=== PATIENT | female | born 1940 | race Hispanic/Latino ===

== ENCOUNTER 2017-07-12 17:18 | Inpatient (IN) | payer MEDICARE, OTHER ==
[2017-07-12 17:33] VITALS: BMI 34.0
--- NOTE | 2017-07-12 18:02 | ED PDOC ---
Arrival/HPI - General Chief Complaint: GI Problem Time Seen by Provider: 07/12/17 17:20 Historian: Patient - History of Present Illness Narrative History of Present Illness (Text): 07/12/17 18:01 This is a 76 yo female with past medical hx of HTN, DM, depression, presenting with chief complaint of nausea and vomiting. Pt describes the vomitus as " coffee ground" in nature. She also reports 1 day of black, tarry stools. Also reports feeling general feeling of weak all day. Denies ever having any episodes of hematemesis of GI bleeding before. Does take ASA and meloxicam regularly. Denies ever having endoscopy or colonoscopy before. Denies fevers, chills, chest pain, palpitations, falls, syncope. PMH: HTN, DM, depression PSH: Denies Allergies: NKDA FH: Denies Home meds: glipizide, metformin, lisinopril, zoloft Social hx: denies smoking, drinking, drug use. lives alone. 07/12/17 18:02 Time/Duration: Prior to Arrival Symptom Onset: Sudden Quality: Unable to Describe Activities at Onset: Rest Context: Home Past Medical History - Provider Review Nursing Documentation Reviewed: Yes - Travel History Have you recently traveled outside [place] w/in the past 3 mons?: No - Infectious Disease Hx of Infectious Diseases: None - Tetanus Immunization Tetanus Immunization: Unknown - Reproductive Menopause: Yes - Cardiac Hx Hypertension: Yes - Endocrine/Metabolic Hx Diabetes Mellitus Type 2: Yes - Psychiatric Hx Substance Use: No - Anesthesia Hx Anesthesia: No Family/Social History - Physician Review Nursing Documentation Reviewed: Yes Family/Social History: No Known Family HX Smoking Status: Never Smoked Hx Alcohol Use: No Hx Substance Use: No Hx Substance Use Treatment: No Allergies/Home Meds Allergies/Adverse Reactions: Allergies No Known Allergies Allergy (Verified 07/12/17 17:26) Home Medications: Home Meds Medication Instructions Recorded Confirmed Glipizide [Glipizide ER] 1 tab PO BID 07/12/17 07/12/17 Lisinopril [Zestril] 1 tab PO DAILY 07/12/17 07/12/17 Meloxicam [Mobic] 1 tab PO BID 07/12/17 07/12/17 Sertraline [Zoloft] 1 tab PO DAILY 07/12/17 07/12/17 metFORMIN [glucOPHAGE] 1 tab PO BID 07/12/17 07/12/17 Review of Systems - Review of Systems Constitutional: Fatigue, Other (weakness). absent: Fevers, Night Sweats Eyes: absent: Vision Changes, Photophobia ENT: absent: Hearing Changes, Tinnitus Respiratory: absent: SOB, Cough Cardiovascular: absent: Chest Pain, Palpitations Gastrointestinal: Abdominal Pain, Stool Changes, Diarrhea, Nausea, Vomiting, Hematemesis Genitourinary Female: absent: Dysuria, Frequency Musculoskeletal: absent: Arthralgias, Back Pain Skin: absent: Rash, Pruritis Neurological: absent: Headache, Dizziness Endocrine: absent: Diaphoresis, Polyuria Hemo/Lymphatic: absent: Adenopathy, Easy Bleeding Psychiatric: absent: Anxiety, Depression Physical Exam Vital Signs Temp Pulse Resp BP Pulse Ox 07/12/17 19:30 57 L 18 135/58 L 99 07/12/17 19:08 61 18 142/59 L 98 07/12/17 17:28 97.8 F 62 18 146/55 L 97 Appearance: Positive for: Unkept, Other (pale) Mental Status: Positive for: Alert and Oriented X 3 Finger Stick Blood Glucose: 231 - Systems Exam Head: Present: Atraumatic, Normocephalic Pupils: Present: PERRL Extroacular Muscles: Present: EOMI Mouth: Present: Dry Neck: Present: Normal Range of Motion Respiratory/Chest: No: Respiratory Distress, Accessory Muscle Use Cardiovascular: Present: Normal S1, S2 Abdomen: No: Tenderness, Distention, Peritoneal Signs Rectal: No: Occult Blood Upper Extremity: Present: Normal Inspection. No: Cyanosis, Edema Lower Extremity: Present: Normal Inspection. No: Edema Neurological: Present: CN II-XII Intact Skin: Present: Warm, Dry Psychiatric: Present: Alert, Oriented x 3, Normal Insight, Normal Concentration Medical Decision Making - Lab Interpretations Lab Results: 07/12/17 17:45 07/12/17 17:45 Lab Results 07/12/17 18:30: Urine Color Yellow, Urine Appearance Sl cloudy, Urine pH 6.0, Ur Specific Rosalie 1.020, Urine Protein Negative, Urine Glucose (UA) 100 H, Urine Ketones 15 H, Urine Blood Moderate H, Urine Nitrate Negative, Urine Bilirubin Negative, Urine Urobilinogen 0.2, Ur Leukocyte Esterase Small H, Urine RBC 5 - 10, Urine WBC 5 - 10, Ur Epithelial Cells 4 - 5, Urine Bacteria Many 07/12/17 18:00: PT 13.7 H, INR 1.25 H, APTT 28.1 07/12/17 17:45: Sodium 140, Potassium 5.1 H, Chloride 105, Carbon Dioxide 18 L, Anion Gap 21 H, BUN 97 H, Creatinine 1.4 H, Est GFR ( Amer) 44, Est GFR ( Non-Af Amer) 36, Random Glucose 248 H, Calcium 9.9, Total Bilirubin 0.3, AST 32 , ALT 27, Alkaline Phosphatase 64, Troponin I 0.05, Total Protein 7.1, Albumin 4.0, Globulin 3.1, Albumin/Globulin Ratio 1.3, Lipase 63 07/12/17 17:45: WBC 10.0, RBC 3.14 L, Hgb 10.0 L, Hct 30.0 L, MCV 95.5, MCH 31.8 , MCHC 33.3, RDW 13.2, Plt Count 267, MPV 9.9, Gran % 88.7 H, Lymph % (Auto) 9.2 L, Harnett % (Auto) 1.9, Eos % (Auto) 0.0 L, Baso % (Auto) 0.2, Gran # 8.90 H, Lymph # 0.9 L, Harnett # 0.2, Eos # 0.0, Baso # 0.02 - Medication Orders Current Medication Orders: Sodium Chloride (Sodium Chloride 0.9%) 1,000 mls @ 80 mls/hr IV .[id number] Last Admin: 07/12/17 18:05 Dose: 80 mls/hr eMAR Start Stop Document 07/12/17 18:05 GMD (Rec: 07/12/17 18:05 [id number]) Intravenous Solution Start Date 07/12/17 Start Time 18:05 Discontinued Medications Ondansetron HCl (Zofran Inj) 4 mg IVP STAT STA Stop: 07/12/17 18:03 Last Admin: 07/12/17 18:08 Dose: 4 mg IVP Administration Document 07/12/17 18:08 GMD (Rec: 07/12/17 18:08 [id number]) Charges for Administration # of IVP Administrations 1 Pantoprazole Sodium (Protonix Inj) 80 mg IVP STAT STA Stop: 07/12/17 18:00 Last Admin: 07/12/17 18:08 Dose: 80 mg IVP Administration Document 07/12/17 18:08 GMD (Rec: 07/12/17 18:08 GMD [id number]) Charges for Administration # of IVP Administrations 1 Disposition/Present on Arrival - Present on Arrival Any Indicators Present on Arrival: No History of DVT/PE: No History of Uncontrolled Diabetes: No Urinary Catheter: No History of Decub. Ulcer: No History Surgical Site Infection Following: None - Disposition Have Diagnosis and Disposition been Completed?: Yes Diagnosis: GI bleed Disposition: HOSPITALIZED Disposition Time: 19:00 Patient Plan: Admission Condition: STABLE
[2017-07-12 18:04] LABS: BASO # 0.02 K/mm3 (0.0-2.0); BASO % 0.2 % (0.0-3.0); GRAN # 8.9 (1.4-6.5); GRAN % 88.7 % (50.0-68.0); LYMPH # 0.9 (1.2-3.4); LYMPH % 9.2 % (22.0-35.0); MEAN CELL VOLUME 95.5 fl (80.0-105.0); MEAN CORPUSCULAR HEMOGLOBIN 31.8 pg (25.0-35.0); MEAN CORPUSCULAR HGB CONC 33.3 g/dl (31.0-37.0); MEAN PLATELET VOLUME 9.9 fl (7.0-11.0); MONO # 0.2 (0.1-0.6); MONO % 1.9 % (1.0-6.0); RED CELL DISTRIBUTION WIDTH 13.2 % (11.5-14.5)
[2017-07-12] MEDS: Sodium Chloride 0.9% 1,000 ML IV SCH (18:05)
[2017-07-12 18:39] LABS: TROPONIN I 0.05 ng/mL
[2017-07-12 18:41] LABS: URINE BILIRUBIN NEGATIVE (NEGATIVE); URINE BLOOD MODERATE (NEGATIVE); URINE GLUCOSE (UA) 100 mg/dL (NEGATIVE); URINE KETONE 15 mg/dL (NEGATIVE); URINE LEUKOCYTE ESTERASE SMALL Leu/uL (NEGATIVE); URINE PROTEIN NEGATIVE mg/dL (<30 mg/dL); URINE UROBILINOGEN 0.2 E.U./dL (<1 E.U./dL)
[2017-07-12 18:42] LABS: ALB/GLOB RATIO 1.3 (1.1-1.8); BILIRUBIN,TOTAL 0.3 mg/dL (0.2-1.3); CALCIUM 9.9 mg/dL (8.4-10.5); POTASSIUM 5.1 mmol/L (3.6-5.0); TOTAL PROTEIN 7.1 g/dL (5.8-8.3)
[2017-07-12 18:43] LABS: INR 1.25 (0.93-1.08); PARTIAL THROMBOPLASTIN TIME 28.1 Seconds (25.1-36.5)
[2017-07-12 18:44] LABS: URINE APPEARANCE SL CLOUDY (CLEAR); URINE COLOR YELLOW (YELLOW)
[2017-07-12 18:59] LABS: URINE BACTERIA MANY (NEG)
[2017-07-13] MEDS: Sodium Chloride 0.9% 1,000 ML IV SCH ×2 (05:31→22:59)
[2017-07-13 06:55] LABS: HEMATOCRIT 26.2 % (36.0-48.0); MEAN CELL VOLUME 94.6 fl (80.0-105.0); MEAN CORPUSCULAR HEMOGLOBIN 31.4 pg (25.0-35.0); MEAN CORPUSCULAR HGB CONC 33.2 g/dl (31.0-37.0); PLATELET COUNT 248 10^3/uL (120.0-450.0); RED CELL DISTRIBUTION WIDTH 13.4 % (11.5-14.5); RETIC% 1.45 % (0.5-1.5); WHITE BLOOD COUNT 9.3 10^3/ul (4.5-11.0)
[2017-07-13 07:02] LABS: IRON 91 ug/dL (45-180)
[2017-07-13 07:25] LABS: ALB/GLOB RATIO 1.2 (1.1-1.8); ALKALINE PHOSPHATASE 55 U/L (38-126); ALT/SGPT 22 U/L (7-56); AST/SGOT 19 U/L (14-36); BILIRUBIN,TOTAL 0.2 mg/dL (0.2-1.3); BLOOD UREA NITROGEN 91 mg/dL (7-21); CALCIUM 9.2 mg/dL (8.4-10.5); CARBON DIOXIDE 21 mmol/L (21-33); CHLORIDE 112 mmol/L (98-107); GFR AFRICAN-AMERICAN 44; GLUCOSE,RANDOM 124 mg/dL (70-110); SODIUM 143 mmol/L (132-148); TOTAL PROTEIN 6.4 g/dL (5.8-8.3)
[2017-07-13] MEDS: Insulin Reg-LOW-Coverage SC SCH ×4 (08:15→22:58)
[2017-07-13 12:11] LABS: FOLATE > 20.0 ng/mL
[2017-07-13 13:46] LABS: MEAN CELL VOLUME 94.4 fl (80.0-105.0); MEAN CORPUSCULAR HEMOGLOBIN 31.5 pg (25.0-35.0); MEAN CORPUSCULAR HGB CONC 33.3 g/dl (31.0-37.0); MEAN PLATELET VOLUME 9.5 fl (7.0-11.0); RED CELL DISTRIBUTION WIDTH 13.6 % (11.5-14.5); WHITE BLOOD COUNT 8.4 10^3/ul (4.5-11.0)
[2017-07-13 13:48] LABS: HEMATOCRIT 23.7 % (36.0-48.0)
--- NOTE | 2017-07-13 20:08 | CARD ---
APPROVED REPORT EKG Measurement Heart [id number] <Conclusion> Wide QRS rhythm Right bundle branch block Left anterior fascicular block Bifascicular block Voltage criteria for left ventricular hypertrophy Cannot rule out Septal infarct, age undetermined Abnormal ECG
--- NOTE | 2017-07-13 23:03 | CP.PCM.CON ---
<Ruben Ibrahim - Last Filed: 07/13/17 22:55> History of Present Illness - History of Present Illness History of Present Illness: Ruben Ibrahim D.O. PGY-2, Critical Care Consultation Note 76 year old female with a PMH of HTN, DM, and heart murmur who presented to [facility] on 07/12/17 with complaints of coffee ground emesis. Critical care consultation was requested for abnormal heart rhythm while on telemetry floor. Patient was seen and examined at bedside with attending physician. Patient was found resting comfortably and asleep but was easily arousable. Patient states that at this time she feels comfortable, has no complaints whatsoever, and is able to relate how she had the coffee grounds before presentation and that she is here now getting a blood transfusion. Patient denies any dizziness, lightheadedness, headache, shortness of breath, chest pain, nausea, vomiting, confusion, or any other complaints. Patient denies ever having been told in the past that she has an arrhythmia or ever seeing a petroleum products district supervisor. PMH: as above PSH: denies SH: denies smoking, alcohol use, or drug use, lives alone FH: denies Meds: reviewed Allergies: NKA Review of Systems - Constitutional Constitutional: absent: Anorexia, Chills, Malaise - EENT Eyes: absent: Blind Spots, Blurred Vision Ears: absent: Decreased Hearing, Ear Discharge Nose/Mouth/Throat: absent: Epistaxis, Nasal Congestion - Cardiovascular Cardiovascular: absent: Chest Pain, Diaphoresis - Respiratory Respiratory: absent: Cough, Dyspnea - Gastrointestinal Gastrointestinal: absent: Abdominal Pain, Nausea, Vomiting - Genitourinary Genitourinary: absent: Dysuria, Hematuria - Musculoskeletal Musculoskeletal: absent: Stiffness, Tingling - Integumentary Integumentary: absent: Pruritus, Rash - Neurological Neurological: absent: Confusion, Dizziness, Numbness, Focal Weakness Past Patient History - Infectious Disease Hx of Infectious Diseases: None - Tetanus Immunizations Tetanus Immunization: Unknown - Past Social History Smoking Status: Never Smoked - CARDIAC Hx Cardiac Disorders: Yes Hx Cardia Arrhythmia: Yes Hx Hypertension: Yes - ENDOCRINE/METABOLIC Hx Diabetes Mellitus Type 2: Yes - MUSCULOSKELETAL/RHEUMATOLOGICAL Hx Falls: Yes - PSYCHIATRIC Hx Depression: Yes - ANESTHESIA Hx Anesthesia: No Meds Allergies/Adverse Reactions: Allergies Allergy/AdvReac Type Severity Reaction Status Date / Time No Known Allergies Allergy Verified 07/12/17 17:26 - Medications Medications: Current Medications Sodium Chloride (Sodium Chloride 0.9%) 1,000 mls @ 80 mls/hr IV .[id number] [facility] Last Admin: 07/13/17 05:31 Dose: 80 mls/hr Insulin Human Regular (Humulin R Low) 0 units SC ACHS [facility] PRN Reason: Protocol Last Admin: 07/13/17 17:29 Dose: Not Given Lisinopril (Zestril) 10 mg PO DAILY [facility] Last Admin: 07/13/17 09:47 Dose: 10 mg Pantoprazole Sodium (Protonix Inj) 40 mg IVP Q12 [facility] Last Admin: 07/13/17 10:20 Dose: 40 mg Sertraline HCl (Zoloft) 50 mg PO DAILY [facility] Last Admin: 07/13/17 09:48 Dose: 50 mg Physical Exam - Constitutional Appears: Well, Non-toxic, No Acute Distress - Head Exam Head Exam: ATRAUMATIC, NORMOCEPHALIC - Eye Exam Eye Exam: EOMI, PERRL. absent: Scleral icterus - ENT Exam ENT Exam: Mucous Membranes Moist, Normal Oropharynx - Neck Exam Neck exam: Positive for: Normal Inspection. Negative for: Tenderness - Respiratory Exam Respiratory Exam: Clear to Auscultation Bilateral. absent: Rales, Rhonchi, Wheezes - Cardiovascular Exam Cardiovascular Exam: RRR, +S1, +S2, Systolic Murmur (3/6). absent: Rubs - GI/Abdominal Exam GI & Abdominal Exam: Normal Bowel Sounds, Soft. absent: Distended, Tenderness - Extremities Exam Extremities exam: Negative for: calf tenderness, pedal edema - Neurological Exam Neurological exam: Alert, Oriented x3 - Psychiatric Exam Psychiatric exam: Normal Affect, Normal Mood - Skin Skin Exam: Dry, Warm Results - Vital Signs Recent Vital Signs: Last Vital Signs Temp 98.7 F 07/13/17 20:54 Pulse 54 L 07/13/17 22:00 Resp 20 07/13/17 20:54 BP 101/38 L 07/13/17 20:54 Pulse Ox 100 07/13/17 06:00 - Labs Result Diagrams: 07/13/17 13:30 07/13/17 06:00 Labs: Laboratory Results - last 24 hr 07/13/17 07/13/17 07/13/17 06:00 06:00 06:00 WBC 9.3 RBC 2.77 L Hgb 8.7 L Hct 26.2 L MCV 94.6 MCH 31.4 MCHC 33.2 RDW 13.4 Plt Count 248 MPV 10.0 Retic Count 1.45 Sodium 143 Potassium 4.0 Chloride 112 H Carbon Dioxide 21 Anion Gap 15 BUN 91 H Creatinine 1.4 H Est GFR ( Amer) 44 Est GFR (Non-Af Amer) 36 POC Glucose (mg/dL) Random Glucose 124 H Calcium 9.2 Magnesium Iron 91 TIBC 250 L % Saturation 37 Total Bilirubin 0.2 AST 19 ALT 22 Alkaline Phosphatase 55 Total Protein 6.4 Albumin 3.4 Globulin 2.9 Albumin/Globulin Ratio 1.2 Vitamin B12 368 Folate > 20.0 07/13/17 07/13/17 07/13/17 07:00 07:09 10:58 WBC RBC Hgb Hct MCV MCH MCHC RDW Plt Count MPV Retic Count Sodium Potassium Chloride Carbon Dioxide Anion Gap BUN Creatinine Est GFR ( Amer) Est GFR (Non-Af Amer) POC Glucose (mg/dL) 143 H 233 H Random Glucose Calcium Magnesium 2.2 Iron TIBC % Saturation Total Bilirubin AST ALT Alkaline Phosphatase Total Protein Albumin Globulin Albumin/Globulin Ratio Vitamin B12 Folate 07/13/17 07/13/17 13:30 16:14 WBC 8.4 RBC 2.51 L Hgb 7.9 L Hct 23.7 L MCV 94.4 MCH 31.5 MCHC 33.3 RDW 13.6 Plt Count 242 MPV 9.5 Retic Count Sodium Potassium Chloride Carbon Dioxide Anion Gap BUN Creatinine Est GFR ( Amer) Est GFR (Non-Af Amer) POC Glucose (mg/dL) 135 H Random Glucose Calcium Magnesium Iron TIBC % Saturation Total Bilirubin AST ALT Alkaline Phosphatase Total Protein Albumin Globulin Albumin/Globulin Ratio Vitamin B12 Folate Assessment & Plan - Assessment and Plan (Free Text) Assessment: 76 year old female with a PMH of HTN, DM, and heart murmur being evaluated for abnormal heart rhythm while on telemetry floor Plan: Mobitz type 1, with alternating junctional escape rhythm EKG done at bedside shows above findings. Patient is completely asymptomatic at this time and hemodynamically stable with BP of 106/76 at bedside and regular HR of 50 with no significant pauses. Recommendation at this time would be careful monitoring of electrolytes for any abnormalities. Noted previous mild hyperkalemia which is resolved since this morning and checked magnesium which was normal at 2.2. Given her current medical state this may have been precipitated by her acute anemia (undergoing treatment with transfusion) or a possible urinary tract infection. Patient may benefit from petroleum products district supervisor evaluation and/or further EP studies as indicated. From a critical care standpoint patient does not require ICU level care at this time and is not in complete heart block and can continue her current medical management on the telemetry floor. Patient was seen and examined and case was discussed at length with attending physician. Thank you for the pleasure of participating in the care of this interesting patient. - Date & Time Date: 07/13/17 Time: 22:20 <Sinan Doe Q - Last Filed: 07/14/17 05:54> Meds - Medications Medications: Current Medications Sodium Chloride (Sodium Chloride 0.9%) 1,000 mls @ 80 mls/hr IV .[id number] [facility] Last Admin: 07/13/17 22:59 Dose: 80 mls/hr Insulin Human Regular (Humulin R Low) 0 units SC ACHS [facility] PRN Reason: Protocol Last Admin: 07/13/17 22:58 Dose: Not Given Lisinopril (Zestril) 10 mg PO DAILY [facility] Last Admin: 07/13/17 09:47 Dose: 10 mg Pantoprazole Sodium (Protonix Inj) 40 mg IVP Q12 [facility] Last Admin: 07/13/17 22:59 Dose: 40 mg Sertraline HCl (Zoloft) 50 mg PO DAILY [facility] Last Admin: 07/13/17 09:48 Dose: 50 mg Results - Vital Signs Recent Vital Signs: Last Vital Signs Temp 98.5 F 07/14/17 05:37 Pulse 47 L 07/14/17 05:37 Resp 20 07/14/17 05:37 BP 109/45 L 07/14/17 05:37 Pulse Ox 99 07/14/17 05:37 - Labs Result Diagrams: 07/13/17 13:30 07/13/17 06:00 Labs: Laboratory Results - last 24 hr 07/13/17 07/13/17 07/13/17 06:00 06:00 06:00 WBC 9.3 RBC 2.77 L Hgb 8.7 L Hct 26.2 L MCV 94.6 MCH 31.4 MCHC 33.2 RDW 13.4 Plt Count 248 MPV 10.0 Retic Count 1.45 Sodium 143 Potassium 4.0 Chloride 112 H Carbon Dioxide 21 Anion Gap 15 BUN 91 H Creatinine 1.4 H Est GFR ( Amer) 44 Est GFR (Non-Af Amer) 36 POC Glucose (mg/dL) Random Glucose 124 H Calcium 9.2 Magnesium Iron 91 TIBC 250 L % Saturation 37 Total Bilirubin 0.2 AST 19 ALT 22 Alkaline Phosphatase 55 Total Protein 6.4 Albumin 3.4 Globulin 2.9 Albumin/Globulin Ratio 1.2 Vitamin B12 368 Folate > 20.0 07/13/17 07/13/17 07/13/17 07:00 07:09 10:58 WBC RBC Hgb Hct MCV MCH MCHC RDW Plt Count MPV Retic Count Sodium Potassium Chloride Carbon Dioxide Anion Gap BUN Creatinine Est GFR ( Amer) Est GFR (Non-Af Amer) POC Glucose (mg/dL) 143 H 233 H Random Glucose Calcium Magnesium 2.2 Iron TIBC % Saturation Total Bilirubin AST ALT Alkaline Phosphatase Total Protein Albumin Globulin Albumin/Globulin Ratio Vitamin B12 Folate 07/13/17 07/13/17 13:30 16:14 WBC 8.4 RBC 2.51 L Hgb 7.9 L Hct 23.7 L MCV 94.4 MCH 31.5 MCHC 33.3 RDW 13.6 Plt Count 242 MPV 9.5 Retic Count Sodium Potassium Chloride Carbon Dioxide Anion Gap BUN Creatinine Est GFR ( Amer) Est GFR (Non-Af Amer) POC Glucose (mg/dL) 135 H Random Glucose Calcium Magnesium Iron TIBC % Saturation Total Bilirubin AST ALT Alkaline Phosphatase Total Protein Albumin Globulin Albumin/Globulin Ratio Vitamin B12 Folate Attending/Attestation - Attestation I have personally seen and examined this patient.: Yes I have fully participated in the care of the patient.: Yes I have reviewed all pertinent clinical information: Yes Notes (Text): 07/14/17 05:51 I agree with the above note and exam by the resident with the addition/ exception of the followin76 y/o female with a PMHx as listed above was on the telemetry floor showing arrhythmia's concerning to the telemetry monitoring scheme technician as well as the nursing staff. Patient evaluated and was found not to be in complete heart block requiring further aggressive management. Furthermore, patient is hemodynamically stable and clinically asymptomatic from a cardiac perspective at this time, resting comfortably in bed answering questions appropriately and visibly upset at being woken up. Recommend Cardiology evaluation Remain on telemetry floor
--- NOTE | 2017-07-14 03:06 | CON ---
DATE: 07/13/2017 REASON FOR CONSULTATION: Anemia, GI bleeding. HISTORY OF PRESENT ILLNESS: This is a 76-year-old patient with a past medical history of diabetes mellitus, hypertension, depression, history of arthritis, presented with complaints of nausea, vomiting. Also, she has coffee ground vomitus, and she reports one-day stool, it is loose black stool. The last bowel movement she has had is little bit more formed. Never had a similar episode before. No further episode since admission. On admission, hemoglobin was 10.0 and it dropped down to this morning to 8.7, and then again to 7.9. PAST MEDICAL HISTORY: Other past medical history as above. SURGICAL HISTORY: Denies any surgical history. No endoscopy or colonoscopy. ALLERGIES: NO KNOWN DRUG ALLERGIES. FAMILY HISTORY: Noncontributory. REVIEW OF SYSTEMS: Positive as above. Other systems reviewed. PHYSICAL EXAMINATION: GENERAL: The patient is lying on the bed, not in acute distress. VITAL SIGNS: Temperature is afebrile, blood pressure 108/50, pulse is 60, respirations 20. HEENT: Atraumatic, anicteric. NECK: Supple. CARDIOPULMONARY: Heart, S1 and S2 heard. LUNGS: Bilateral air entry present. ABDOMEN: Soft. There was no tenderness. EXTREMITIES: No edema, no cyanosis. NEUROLOGIC: Alert, oriented. Moves all the extremities. LABORATORY DATA: Hemoglobin has dropped from 10 to 8.7, then finally today is 7.9. Patient has resumed blood transfusion and MCV is 94.4. Chemistry shows creatinine is 1.4, BUN 94, INR is 1.25. ASSESSMENT: This 76-year-old patient admitted with melena, coffee ground vomitus, probably upper gastrointestinal bleeding. Patient has a history of taking nonsteroidal antiinflammatory drugs, mostly likely cause to be considered is NSAID-induced ulcerations and bleeding. Other comorbidities include diabetes mellitus, hypertension, and dyslipidemia. PLAN: 1. Follow up of the hemoglobin, hematocrit. 2. IV Protonix. 3. The patient has been transfused and we will need to follow up of the hemoglobin. We will consider upper GI endoscopy. Thank you very much for allowing us to participate in the care of the patient. Hansel Cardenas MD
[2017-07-14 06:01] LABS: HEMATOCRIT 29.6 % (36.0-48.0); MEAN CELL VOLUME 93.7 fl (80.0-105.0); MEAN CORPUSCULAR HGB CONC 33.1 g/dl (31.0-37.0); MEAN PLATELET VOLUME 9.8 fl (7.0-11.0); RED CELL DISTRIBUTION WIDTH 14.5 % (11.5-14.5); WHITE BLOOD COUNT 8.1 10^3/ul (4.5-11.0)
[2017-07-14 07:07] LABS: ALB/GLOB RATIO 1.2 (1.1-1.8); BILIRUBIN,TOTAL 0.4 mg/dL (0.2-1.3); CALCIUM 9.3 mg/dL (8.4-10.5); POTASSIUM 4.3 mmol/L (3.6-5.0); TOTAL PROTEIN 5.9 g/dL (5.8-8.3)
[2017-07-14] MEDS: Insulin Reg-LOW-Coverage SC SCH ×4 (08:18→22:08)
[2017-07-14] MEDS: Sodium Chloride 0.9% 1,000 ML IV SCH ×2 (08:19→12:04)
--- NOTE | 2017-07-14 14:01 | CARD ---
APPROVED REPORT EKG Measurement Heart [id number] <Conclusion> Sinus rhythm with 2nd degree AV block (Mobitz I) Right bundle branch block Left anterior fascicular block Bifascicular block Left ventricular hypertrophy with repolarization abnormality Cannot rule out Anteroseptal infarct, age undetermined Abnormal ECG
--- NOTE | 2017-07-14 18:00 | CARD ---
APPROVED REPORT EXAM: Two-dimensional and M-mode echocardiogram with Doppler and color Doppler. INDICATION 2D DIMENSIONS Left Atrium (2D)5.5 (1.6-4.0cm)IVSd1.4 (0.7-1.1cm) LVDd4.4 (3.9-5.9cm)LVOT Diameter1.4 (1.8-2.4cm) PWd1.8 (0.7-1.1cm)LVDs2.8 (2.5-4.0cm) FS (%) 36.2 %LVEF (%)66.2 (>50%) M-Mode DIMENSIONS Aortic Root3.30 (2.2-3.7cm)Aortic Cusp Exc.0.70 (1.5-2.0cm) Aortic Valve AoV Peak Jtemxwba902.0cm/sAoV WWO301.0cmAO Peak GR.123mmHg LVOT Peak Nuxgukna426.0cm/sLVOT VTI42.70cmAO Mean GR.72mmHg CATALINA (VMAX)0.47uh8RID (VTI)0.08ac8EV P 1/2 Ehbz817ut Mitral Valve MV E Gxwmvywv845.0cm/sMV E Peak Gr.13mmHgMV A Wuvlgdae075.0cm/s MV E Mean Gr.6mmHgMV GDG172ptB/A ratio1.1 MVA (PHT)1.39cm2 TDI E/Lateral E'0.0E/Medial E'0.0 Pulmonary Valve PV Peak Siirdoqb230.0cm/sPV Peak Grad.8mmHg Tricuspid Valve TR Peak Onbfkiro163nl/sRAP KOIDJMFK20niSdUV Peak Gr.49mmHg BQRM21gfWz LEFT VENTRICLE The left ventricle is normal size. There is mild to moderate concentric left ventricular hypertrophy. The left ventricular function is normal.EF-65% There is normal LV segmental wall motion. Transmitral Doppler flow pattern is Grade III-reversible restrictive diastolic dysfunction. No left ventricle thrombus noted on this study. There is no ventricular septal defect visualized. There is no left ventricular aneurysm. There is no mass noted in the left ventricle. RIGHT VENTRICLE The right ventricle is mildly dilated. There is normal right ventricular wall thickness. Systolic function of RV is mildly reduced. ATRIA The left atrium is moderately dilated. The right atrium is borderline dilated. The interatrial septum is intact with no evidence for an atrial septal defect. AORTIC VALVE The aortic valve is calcified and displays decreased opening. There is trace aortic regurgitation. There is severe valvular aortic stenosis. There is no aortic valvular vegetation. MITRAL VALVE The mitral valve is calcified and displays decreased opening. Mitral regurgitation is mild to moderate. There is moderate mitral valve stenosis. There is no evidence of mitral valve prolapse. TRICUSPID VALVE The tricuspid valve leaflets are thickened , but open well. There is mild to moderate tricuspid regurgitation.RVSP-59 mmof h g. There is no tricuspid valve stenosis. There is no tricuspid valve prolapse or vegetation. PULMONIC VALVE The pulmonary valve is normal in structure. There is trace pulmonic valvular regurgitation. There is no pulmonic valvular stenosis. GREAT VESSELS The aortic root is normal in size. The ascending aorta is normal in size. The pulmonary artery is normal. The IVC is normal in size and collapses >50% with inspiration. PERICARDIAL EFFUSION There is no pleural effusion. There is no pericardial effusion. <Conclusion> The left ventricle is normal size. There is mild to moderate concentric left ventricular hypertrophy. The left ventricular function is normal.EF-65% The right ventricle is mildly dilated. Systolic function of RV is mildly reduced. There is trace aortic regurgitation. There is severe valvular aortic stenosis. Mitral regurgitation is mild to moderate. There is moderate mitral valve stenosis. There is mild to moderate tricuspid regurgitation.RVSP-59 mmof h g.
--- NOTE | 2017-07-14 23:47 | PN ---
DATE: 07/14/2017 SUBJECTIVE: This patient was seen and evaluated earlier today. The patient previous overnight nursing notes and Dr. Yousif's note reviewed. The patient is comfortable. No further episodes of melena. PHYSICAL EXAMINATION VITAL SIGNS: Temperature is 98, pulse is 57 and blood pressure is 139/61. HEENT: Atraumatic. Anicteric. NECK: Supple. HEART: S1 and S2 heard. LUNGS: Bilateral air entry present. ABDOMEN: Soft. There is mild tenderness on deep palpation in the epigastric area, otherwise unremarkable. LABORATORY DATA: Hemoglobin is 9.8, hematocrit is 29.6, WBC is 8.1, and platelets are 205. BUN of 62 and creatinine of 1.3. IMPRESSION: This 76-year-old patient admitted with melena with drop in blood count, hemoglobin on initial admission was 10, it dropped to 7.9, status post 2 units transfusion, hemoglobin now is 9.8. The patient is on Protonix, history of nonsteroidal anti-inflammatory drug used as caused probable upper gastrointestinal bleeding to be considered. I did discuss with the patient's daughter at length, they are agreeable for the endoscopic evaluation. The patient was originally scheduled for endoscopy today. The patient had bradyarrhythmias and had been evaluated by the Cardiology. The patient has an echocardiogram done also. I would recommend. Her other comorbidities include diabetes mellitus, hypertension, depression, and history of arthritis. RECOMMENDATIONS: Continue Protonix 40 mg every 12 hourly and clear liquid diet. The patient is rescheduled for endoscopy in the a.m. Thank you very much for allowing us to participate in the care of the patient. Hansel Cardenas MD
[2017-07-15] MEDS: Sodium Chloride 0.9% 1,000 ML IV SCH ×3 (01:52→17:59)
--- NOTE | 2017-07-15 02:52 | CON ---
DATE: 07/13/2017 CONSULTING SERVICE: Cardiology. REASON FOR CONSULTATION: Abnormal lithium, rule out complete heart block or to assess need for pacemaker. BRIEF CLINICAL HISTORY: This is a 76-year-old female with mild obesity, hypertension, diabetes, heart murmur for many years, possible aortic stenosis, admitted with a coffee-ground vomitus, on telemetry. The patient appears Mobitz type I and complete heart block, so Cardiology consult was called. The patient denies any chest pain, shortness of breath, any palpitation. Denies any dizziness. Family is at the bedside. The patient has been told that she has heart murmur and abnormal lithium and was referred to Cardiology. The patient never went to see the home demonstration agent. PAST MEDICAL HISTORY: Significant for hypertension, diabetes, and heart murmur. SOCIAL HISTORY: Denies any history of alcohol abuse. CURRENT MEDICATIONS: The patient at home was taking metformin one tablet daily, Zoloft one tablet daily, Mobic one tablet daily, lisinopril one tablet daily, and glipizide extended release one tablet daily. ALLERGIES: NO KNOWN DRUG ALLERGIES. REVIEW OF SYSTEMS: As per HPI. PHYSICAL EXAMINATION: VITAL SIGNS: As follows: Temperature is afebrile, heart rate 73, and blood pressure 119/46. HEENT: PERRLA. Extraocular muscles are intact. NECK: Supple. No carotid bruit or thyromegaly. CHEST: Clear to auscultation. HEART: S1 and S2 regular. ABDOMEN: Soft. EXTREMITIES: Clubbing and cyanosis negative. LABORATORY DATA: Blood workup as follows: WBC 8.1, hemoglobin 9.8, hematocrit 29.6, and platelet count 205. Chemistry shows sodium 143, potassium 4.3, chloride 114, carbon dioxide 25, anion gap of 12, BUN 62, and creatinine 1.3. Hemoglobin 8.7 admitting and went down to 7.9, status post packed RBC transfusion. EKG shows QRS, right bundle bifascicular block. Repeat EKG shows Mobitz type I right bundle bifascicular block. IMPRESSION: Gastrointestinal bleed, hypertension, hyperlipidemia, loud murmur, and possible aortic stenosis.Arrhythmia R/o High grade AB Block and need for PPM, so far pt. is asymptomatic. RECOMMENDATIONS: Holter monitor, will assess the need for pacemaker. Echo to assess the LV function, lipid profile, and TSH. Discussed with the daughter, Nuvia, telephone number [phone] in length about the patient, the potential the patient may need the pacemaker depending on the hospital course. We will closely follow. We will put Holter today and lipid profile. Further recommendations will depend on the hospital course. Thank you for providing me the opportunity in taking care of Jody Townsend. Precious Yousif MD MTDPenelope
[2017-07-15 06:50] LABS: BASO # 0.03 K/mm3 (0.0-2.0); BASO % 0.4 % (0.0-3.0); EOS # 0.2 (0.0-0.7); EOS % 2.8 % (1.5-5.0); GRAN # 5.22 (1.4-6.5); GRAN % 70.9 % (50.0-68.0); HEMATOCRIT 27.5 % (36.0-48.0); LYMPH # 1.4 (1.2-3.4); LYMPH % 18.3 % (22.0-35.0); MEAN CELL VOLUME 93.9 fl (80.0-105.0); MEAN CORPUSCULAR HEMOGLOBIN 31.4 pg (25.0-35.0); MEAN CORPUSCULAR HGB CONC 33.5 g/dl (31.0-37.0); MEAN PLATELET VOLUME 9.7 fl (7.0-11.0); MONO # 0.6 (0.1-0.6); MONO % 7.6 % (1.0-6.0); RED CELL DISTRIBUTION WIDTH 14.4 % (11.5-14.5); WHITE BLOOD COUNT 7.4 10^3/ul (4.5-11.0)
[2017-07-15 07:06] LABS: ALB/GLOB RATIO 1.1 (1.1-1.8); BILIRUBIN,TOTAL 0.4 mg/dL (0.2-1.3); CALCIUM 8.8 mg/dL (8.4-10.5); MAGNESIUM 1.9 mg/dL (1.7-2.2); PHOSPHOROUS 2.8 mg/dL (2.5-4.5); TOTAL PROTEIN 5.9 g/dL (5.8-8.3)
[2017-07-15] MEDS: Insulin Reg-LOW-Coverage SC SCH ×4 (09:41→21:47)
--- NOTE | 2017-07-15 10:55 | CP.PCM.PN ---
<Anny Daly - Last Filed: 07/15/17 10:51> Subjective - Date & Time of Evaluation Date of Evaluation: 07/15/17 Time of Evaluation: 10:00 - Subjective Subjective: Seen and examined at the bedside this morning, chart was reviewed. Patient denies nausea, vomiting, or abdominal pain. No further episodes of hematemesis. The patient seen by cardiology who recommended pacemaker, patient is scheduled for tomorrow. Diet resumed. Patient reports having semi-loose stools nor reports of melena. Objective - Vital Signs/Intake and Output Vital Signs (last 24 hours): Temp Pulse Resp BP Pulse Ox 98.1 F 54 L 18 131/43 L 97 07/15/17 05:53 07/15/17 09:51 07/15/17 05:53 07/15/17 05:53 07/15/17 05:53 Intake and Output: 07/15/17 07/15/17 06:59 18:59 Intake Total 1380 Output Total 850 Balance 530 - Medications Medications: Current Medications Sodium Chloride (Sodium Chloride 0.9%) 1,000 mls @ 80 mls/hr IV .[id number] [facility] Last Admin: 07/15/17 09:42 Dose: Not Given Insulin Human Regular (Humulin R Low) 0 units SC ACHS [facility] PRN Reason: Protocol Last Admin: 07/15/17 09:41 Dose: Not Given Lisinopril (Zestril) 10 mg PO DAILY [facility] Last Admin: 07/15/17 09:51 Dose: Not Given Pantoprazole Sodium (Protonix Inj) 40 mg IVP Q12 [facility] Last Admin: 07/15/17 09:50 Dose: 40 mg Sertraline HCl (Zoloft) 50 mg PO DAILY [facility] Last Admin: 07/15/17 09:51 Dose: 50 mg - Labs Labs: 07/15/17 05:30 07/15/17 05:30 PT 13.7 SECONDS (9.4-12.5) H 07/12/17 18:00 INR 1.25 (0.93-1.08) H 07/12/17 18:00 APTT 28.1 Seconds (25.1-36.5) 07/12/17 18:00 - Constitutional Appears: No Acute Distress - Head Exam Head Exam: NORMOCEPHALIC - Eye Exam Eye Exam: Normal appearance, PERRL - ENT Exam ENT Exam: Mucous Membranes Moist - Neck Exam Neck Exam: Normal Inspection - Respiratory Exam Respiratory Exam: NORMAL BREATHING PATTERN. absent: Respiratory Distress - Cardiovascular Exam Cardiovascular Exam: +S1, +S2 - GI/Abdominal Exam GI & Abdominal Exam: Soft, Normal Bowel Sounds. absent: Guarding, Tenderness, Rebound - Extremities Exam Extremities Exam: absent: Calf Tenderness - Neurological Exam Neurological Exam: Alert, Awake, Oriented x3 - Skin Skin Exam: Dry, Warm Assessment and Plan - Assessment and Plan (Free Text) Assessment: Assessment: GI bleed/melena/hematemsis Anemia status post 2 units of packed RBC History of NSAID use H/O Arthritis Bradyarrhytmia DM, HTN PLAN: resume diet , heart healthy continue Protonix 40 mg Q 12H monitor H/H, overt GI bleeding planned for pacemaker tomorrow as per cardiology plan for EGD when cardiac stable, will follow closely discussed w/ both daughters at bedside. Seen and discussed w/ Dr. Muro. <Hansel Cardenas V - Last Filed: 07/15/17 23:32> Objective - Vital Signs/Intake and Output Vital Signs (last 24 hours): Temp Pulse Resp BP Pulse Ox 97.1 F L 48 L 19 127/41 L 97 07/15/17 18:00 07/15/17 22:00 07/15/17 18:00 07/15/17 18:00 07/15/17 05:53 - Medications Medications: Current Medications Sodium Chloride (Sodium Chloride 0.9%) 1,000 mls @ 80 mls/hr IV .[id number] [facility] Last Admin: 07/15/17 17:59 Dose: 80 mls/hr Insulin Human Regular (Humulin R Low) 0 units SC ACHS [facility] PRN Reason: Protocol Last Admin: 07/15/17 21:47 Dose: Not Given Lisinopril (Zestril) 10 mg PO DAILY [facility] Last Admin: 07/15/17 09:51 Dose: Not Given Pantoprazole Sodium (Protonix Inj) 40 mg IVP Q12 [facility] Last Admin: 07/15/17 21:49 Dose: 40 mg Sertraline HCl (Zoloft) 50 mg PO DAILY [facility] Last Admin: 07/15/17 09:51 Dose: 50 mg - Labs Labs: 07/15/17 05:30 07/15/17 05:30 PT 13.7 SECONDS (9.4-12.5) H 07/12/17 18:00 INR 1.25 (0.93-1.08) H 07/12/17 18:00 APTT 28.1 Seconds (25.1-36.5) 07/12/17 18:00 Attending/Attestation - Attestation I have personally seen and examined this patient.: Yes I have fully participated in the care of the patient.: Yes I have reviewed all pertinent clinical information, including history, physical exam and plan: Yes Notes (Text): This is an addendum to GI progress report dictated by Anny Daly APN.The patient was seen and examined earlier. Medical records, lab studies, imagings were reviewed. Last 24 hours events reviewed. Agreed with the above treatment plan as outlined in Anny Daly APN's notes the with the addition of the following Patient is tolerating the diet On PPI Hemoglobin stable Discussed with the Dr. Sexton Plan for permanent pacemaker placement tomorrow. Recommendation 1. Follow up on the hemoglobin and hematocrit to continue PPI She is scheduled for EGD after permanent pacemaker placement 07/15/17 23:27 Ir
--- NOTE | 2017-07-15 13:25 | PN ---
DATE:07/15/2017 REASON FOR CONSULTATION: Abnormal rhythm, rule out complete heart block, assess a need of pacemaker. SUBJECTIVE: The patient is lying flat in the bed, came out from endoscopy this was canceled because of heart block. Denies any chest pain. Denies shortness of breath. Denies any palpitation. Denies any dizziness. OBJECTIVE: GENERAL: Not in apparent distress. VITAL SIGNS: As follows: The patient is n.p.o., heart rate 70, and blood pressure 119/44. HEENT: PERRLA intact. NECK: Supple. No carotid bruits or thyromegaly. CHEST: Clear to auscultation. HEART: S1 and S2. Regular. ABDOMEN: Soft. EXTREMITIES: Clubbing and cyanosis negative. LABORATORY DATA: Blood workup: WBC 8.1, hemoglobin 9.8, hematocrit 27.5, and platelet count 203. Chemistry shows sodium 140, potassium 4.0, chloride 112, carbon dioxide 23, anion gap 10, BUN 34, and creatinine 1.1. The patient had an echocardiography done yesterday that shows ejection fraction of 65%, right ventricle mildly dilated, her systolic pressure of right ventricle is mildly reduced, trace aortic regurgitation, severe valvular aortic stenosis, [id number]-[id number] mitral regurgitation, moderate mitral valve stenosis, and okhw-pv-[id number] tricuspid regurgitation. Telemetry strip shows isorhythmic AV dissociation, complete heart block, but the patient is hemodynamically stable. GI bleed, hematemesis, dropped H and H, admitting hemoglobin then dropped to 8.7, then 7.9, two units of packed RBC, now is 9.2. The patient was scheduled for endoscopy today, but because of the heart block, Anesthesia is concerned and it is canceled. RECOMMENDATIONS: Resume diet. Yesterday discussed with daughter Adri at length and the sister about the possibility of pacemaker. Today, telemetry reviewed. The patient is in complete heart block with asymptomatic and maintaining the blood pressure the patient needs a pacemaker. Left the message to Adri on telephone [phone], though yesterday, I discussed in length the possibility of a pacemaker depending on the hospital course. Now since the patient is here, telemetry strip shows the patient goes into Mobitz type II block and then goes into heart block, though remained hemodynamically stable, lowest heart rate is around 50 to 49 to 50, but is isorhythmic AV dissociation. Recommendation was to schedule a pacemaker tomorrow and resume the food. Also the patient had underlying severe aortic stenosis, moderate mitral regurgitation. We also discussed the need of valvular procedure, TAVR versus open heart, but needs a catheterization for that, but first in terms of priority, the patient needs pacemaker that will be scheduled tomorrow and then the patient endoscopy plus the patient's dropping H and H. Once the endoscopy is done and GI issue is resolved, then we will look into the issue to resolve the valvular heart disease for TAVR versus open heart surgery. We will discuss with you. For now, we will hold the endoscopy, resume diet. We will keep n.p.o. after the breakfast for pacemaker tomorrow. In the interim, continue lisinopril and avoid rate limiting calcium channel sonia or beta-sonia. We will follow with you. Thank you Dr. Bell for providing me the opportunity in taking care of the patient, Cary Vera. Precious Yousif MD
--- NOTE | 2017-07-15 17:36 | CARD ---
APPROVED REPORT EKG Measurement Heart [id number] <Conclusion> Atrial fibrillation with slow ventricular response with a competing junctional pacemaker Right bundle branch block Left anterior fascicular block Bifascicular block Voltage criteria for left ventricular hypertrophy Cannot rule out Anteroseptal infarct, age undetermined Abnormal ECG
--- NOTE | 2017-07-16 00:57 | PN ---
DATE: 07/15/2017 SUBJECTIVE: The patient was seen this Friday evening in room 270, bed 2. She is awake, alert, clear, resting comfortably in bed. Happy to see me on this her third day of hospital stay. She admitted with hematemesis. She was found to be bradycardic. She was transfused 2 units of packed red cells and is scheduled for pacemaker placement tomorrow. She had an echocardiogram because of her longstanding aortic stenosis murmur, which showed significant stenosis that could be addressed in the future after pacemaker and GI workup. Telemetry strips were reviewed, showing a variety of blocks including third-degree block and bradyarrhythmia, is down into the 30s. Labs, vital signs, and senior solutions workflow consultant notes were reviewed and appreciated. PHYSICAL EXAMINATION: GENERAL: Essentially unremarkable. She is awake, alert, in good spirits. LUNGS: Show good aeration, right and left. HEART: Not tachycardic, not bradycardic at this time. EXTREMITIES: Show no edema. IMPRESSION: 1. Hematemesis. 2. Bradyarrhythmia. 3. Aortic stenosis. 4. History of hypertension. 5. History of diabetes. PLAN: Pacemaker for tomorrow, then endoscopy for hematemesis. Continue PPIs. Flip Bell MD MTDD
[2017-07-16] MEDS: Sodium Chloride 0.9% 1,000 ML IV SCH ×2 (05:03→22:52)
[2017-07-16 06:31] LABS: BASO # 0.03 K/mm3 (0.0-2.0); BASO % 0.4 % (0.0-3.0); EOS # 0.3 (0.0-0.7); EOS % 3.2 % (1.5-5.0); GRAN # 5.34 (1.4-6.5); GRAN % 68.6 % (50.0-68.0); HEMATOCRIT 26.8 % (36.0-48.0); LYMPH # 1.7 (1.2-3.4); LYMPH % 21.3 % (22.0-35.0); MEAN CELL VOLUME 94.4 fl (80.0-105.0); MEAN CORPUSCULAR HEMOGLOBIN 31.3 pg (25.0-35.0); MEAN CORPUSCULAR HGB CONC 33.2 g/dl (31.0-37.0); MEAN PLATELET VOLUME 9.7 fl (7.0-11.0); MONO # 0.5 (0.1-0.6); MONO % 6.5 % (1.0-6.0); PLATELET COUNT 214 10^3/uL (120.0-450.0); RED CELL DISTRIBUTION WIDTH 13.9 % (11.5-14.5); RETIC% 2.35 % (0.5-1.5); WHITE BLOOD COUNT 7.8 10^3/ul (4.5-11.0)
[2017-07-16 06:58] LABS: BLOOD UREA NITROGEN 33 mg/dL (7-21); CALCIUM 8.9 mg/dL (8.4-10.5); CARBON DIOXIDE 25 mmol/L (21-33); CHLORIDE 110 mmol/L (98-107); GFR AFRICAN-AMERICAN > 60; GLUCOSE,RANDOM 140 mg/dL (70-110); POTASSIUM 4.2 mmol/L (3.6-5.0); SODIUM 139 mmol/L (132-148)
[2017-07-16] MEDS: Insulin Reg-LOW-Coverage SC SCH ×4 (08:30→22:05)
[2017-07-16] MEDS ORDERED: Pantoprazole 40mg/100ml IVPB 40 MG/100 ML BAG IVPB SCH (08:30)
[2017-07-16] MEDS: Pantoprazole 40mg/100ml IVPB 40 MG/100 ML BAG IVPB SCH ×2 (08:37→22:05)
[2017-07-16 08:54] LABS: HEMATOCRIT 22.3 % (36.0-48.0)
--- NOTE | 2017-07-16 10:01 | CP.PCM.PN ---
Subjective - Date & Time of Evaluation Date of Evaluation: 07/16/17 Time of Evaluation: 08:50 - Subjective Subjective: CRITICAL CARE PROGRESS NOTE Pt is 76 year old female with a PMH of HTN, DM, and heart murmur who presented to [facility] on 07/12/17 with complaints of coffee ground emesis. Patient was also noted to be in 2nd degree block, with plans for PPM this morning. Patient was doing well on telemetry, this morning had large amount coffee ground emesis, with drop in HH to 7.4. Currently afebrile, HD stable, comfortable, in NAD. Reports nausea with vomiting. No other constitutional symptoms. Objective - Vital Signs/Intake and Output Vital Signs (last 24 hours): Temp Pulse Resp BP Pulse Ox 98.7 F 49 L 20 134/46 L 98 07/16/17 06:00 07/16/17 06:00 07/16/17 06:00 07/16/17 06:00 07/16/17 06:00 Intake and Output: 07/16/17 07/16/17 06:59 18:59 Intake Total 1320 Output Total 0 Balance 1320 - Medications Medications: Current Medications Sodium Chloride (Sodium Chloride 0.9%) 1,000 mls @ 80 mls/hr IV .[id number] [facility] Last Admin: 07/16/17 05:03 Dose: Not Given Pantoprazole Sodium (Protonix 40mg Ivpb) 40 mg in 100 mls @ 8 mls/hr IVPB .[id number] [facility] Last Admin: 07/16/17 08:37 Dose: 8 mls/hr Insulin Human Regular (Humulin R Low) 0 units SC ACHS [facility] PRN Reason: Protocol Last Admin: 07/16/17 08:30 Dose: Not Given Lisinopril (Zestril) 10 mg PO DAILY [facility] Last Admin: 07/15/17 09:51 Dose: Not Given Ondansetron HCl (Zofran Inj) 4 mg IVP Q4H PRN PRN Reason: Nausea/Vomiting Last Admin: 07/16/17 07:58 Dose: 4 mg Sertraline HCl (Zoloft) 50 mg PO DAILY [facility] Last Admin: 07/15/17 09:51 Dose: 50 mg - Labs Labs: 07/16/17 08:13 07/16/17 05:40 PT 13.7 SECONDS (9.4-12.5) H 07/12/17 18:00 INR 1.25 (0.93-1.08) H 07/12/17 18:00 APTT 28.1 Seconds (25.1-36.5) 07/12/17 18:00 - Constitutional Appears: Well, Non-toxic, No Acute Distress - Eye Exam Eye Exam: Normal appearance - ENT Exam ENT Exam: Mucous Membranes Moist - Respiratory Exam Respiratory Exam: Clear to Ausculation Bilateral, NORMAL BREATHING PATTERN - Cardiovascular Exam Cardiovascular Exam: REGULAR RHYTHM, +S1, +S2 - GI/Abdominal Exam GI & Abdominal Exam: Soft, Normal Bowel Sounds - Back Exam Back Exam: NORMAL INSPECTION - Neurological Exam Neurological Exam: Alert, Awake, Oriented x3 Neuro motor strength exam: Left Upper Extremity: 5, Right Upper Extremity: 5, Left Lower Extremity: 5, Right Lower Extremity: 5 - Skin Skin Exam: Normal Color Assessment and Plan - Assessment and Plan (Free Text) Assessment: 76yo female a/w GIB and and 2nd degree heart block. - currently afebrile, HD stable, comfortable, AAoX3, NAD - EKG with Mobitz type I, NSST changes - HH dropped to 7.5 from 8.9 - patient to receive 2u pRBC, then have EGD done as per GI and cardiology - transfuse 2u PRBC, platelets stable - check INR - IVF hydration - maintain 2 large bore PIVs - PPI gtt - NPO - follow up cardiology, GI - transfer to MICU critical care time 40 minutes
--- NOTE | 2017-07-16 10:50 | PN ---
DATE: 07/16/2017 The patient is a 76-year-old female. REASON FOR CONSULTATION AND FOLLOWUP: Abnormal rhythm, rule out complete heart block and assess the need for pacemaker, active bleeding GI. This morning decent amount of hematemesis noted. OBJECTIVE: GENERAL: The patient is lying flat in bed, a sort of rapid response. The patient is actively GI bleeding, though hemodynamically stable. Not in apparent distress. VITAL SIGNS: Temperature afebrile, heart rate 71, blood pressure 121/80. HEENT: PERRLA intact. NECK: Supple. No carotid bruits or thyromegaly. CHEST: Clear to auscultation. HEART: S1 and S2 regular. ABDOMEN: Soft. EXTREMITIES: Clubbing and cyanosis negative. LABORATORY DATA: Blood workup as follows: WBC at 05:00 a.m. 7.8, hemoglobin 8.9, hematocrit 26.8, platelet count 214. Chemistry shows sodium 113, potassium 4.2, chloride 110, carbon dioxide 25, anion gap of 8, BUN 33, and creatinine 1. IMPRESSION: Active gastrointestinal bleeding, decent amount of gastrointestinal bleed, fresh blood, hematemesis, complete heart block, but holding the blood pressure hemodynamically not compromised. Aortic stenosis, severe [id number] mitral regurgitation, moderate valvular aortic stenosis. It looks like the patient needs urgent endoscopy. It is benefit ratio in favor of though the patient will be high risk for procedure, but risk-benefit ratio is in favor to have endoscopy because the patient can exsanguinate and from the active bleeding, and since the patient is not hemodynamically compromised, does not need emergent temporary venous pacemaker. Discussed with Dr. Cardenas of GI. The patient is hemodynamically stable from Cardiology point of view to go to the operating room for endoscopy and cauterization. After this, we will consider the pacemaker. The patient has already been scheduled for pacemaker for 03:00 p.m. If the patient remains stable, we will put the pacemaker tomorrow at 03:00 p.m. We will follow with you closely. Thank you for providing us the opportunity in taking care of the patient, Jody Townsend. Precious Yousif MD
[2017-07-16] MEDS ORDERED: Etomidate 20 mg/10ml Inj IV ONE (15:36)
[2017-07-16] MEDS ORDERED: Phenylephrine 10 mg/ml Inj ONE (15:37)
[2017-07-16] MEDS ORDERED: ePHEDrine 50 mg/ml Inj ONE (15:37)
[2017-07-16] MEDS ORDERED: Lidocaine 1% Inj (20ml) ONE (15:50)
[2017-07-16] MEDS ORDERED: Succinylcholine 200 mg/10 ml Inj IV ONE (15:51)
[2017-07-16] MEDS ORDERED: EPINEPHrine 1 mg/ml (1:1000) Inj ONE (16:35)
[2017-07-16 20:30] LABS: HEMATOCRIT 27.1 % (36.0-48.0); MEAN CELL VOLUME 92.5 fl (80.0-105.0); MEAN CORPUSCULAR HEMOGLOBIN 31.4 pg (25.0-35.0); MEAN CORPUSCULAR HGB CONC 33.9 g/dl (31.0-37.0); MEAN PLATELET VOLUME 9.8 fl (7.0-11.0); RED CELL DISTRIBUTION WIDTH 14.4 % (11.5-14.5); WHITE BLOOD COUNT 16.9 10^3/ul (4.5-11.0)
--- NOTE | 2017-07-16 23:42 | CARD ---
APPROVED REPORT EKG Measurement Heart [id number] <Conclusion> Atrial fibrillation with a competing junctional pacemaker Right bundle branch block Left anterior fascicular block Bifascicular block Voltage criteria for left ventricular hypertrophy Cannot rule out Septal infarct, age undetermined Abnormal ECG
[2017-07-17 01:12] LABS: HEMATOCRIT 26.1 % (36.0-48.0); MEAN CELL VOLUME 92.9 fl (80.0-105.0); MEAN CORPUSCULAR HEMOGLOBIN 31.3 pg (25.0-35.0); MEAN CORPUSCULAR HGB CONC 33.7 g/dl (31.0-37.0); MEAN PLATELET VOLUME 9.9 fl (7.0-11.0); WHITE BLOOD COUNT 14.6 10^3/ul (4.5-11.0)
[2017-07-17 05:37] LABS: MEAN CELL VOLUME 92.3 fl (80.0-105.0); MEAN CORPUSCULAR HEMOGLOBIN 31.3 pg (25.0-35.0); MEAN CORPUSCULAR HGB CONC 33.9 g/dl (31.0-37.0); RED CELL DISTRIBUTION WIDTH 14.9 % (11.5-14.5); WHITE BLOOD COUNT 11.9 10^3/ul (4.5-11.0)
[2017-07-17 05:52] LABS: HEMATOCRIT 23.9 % (36.0-48.0)
[2017-07-17] MEDS: Sodium Chloride 0.9% 1,000 ML IV SCH ×2 (05:53→17:06)
[2017-07-17] MEDS: Insulin Reg-LOW-Coverage SC SCH ×4 (08:00→22:03)
[2017-07-17 08:24] LABS: ALB/GLOB RATIO 1.2 (1.1-1.8); BILIRUBIN,TOTAL 0.3 mg/dL (0.2-1.3); CALCIUM 8.2 mg/dL (8.4-10.5); POTASSIUM 4.2 mmol/L (3.6-5.0); TOTAL PROTEIN 5.2 g/dL (5.8-8.3)
[2017-07-17] MEDS: Pantoprazole 40mg/100ml IVPB 40 MG/100 ML BAG IVPB SCH ×2 (08:37→21:04)
[2017-07-17 10:17] LABS: BASO # 0.04 K/mm3 (0.0-2.0); BASO % 0.4 % (0.0-3.0); EOS # 0.1 (0.0-0.7); EOS % 0.6 % (1.5-5.0); GRAN # 7.31 (1.4-6.5); GRAN % 77.4 % (50.0-68.0); LYMPH # 1.5 (1.2-3.4); LYMPH % 15.6 % (22.0-35.0); MEAN CORPUSCULAR HEMOGLOBIN 31.3 pg (25.0-35.0); MEAN CORPUSCULAR HGB CONC 33.6 g/dl (31.0-37.0); MEAN PLATELET VOLUME 9.8 fl (7.0-11.0); MONO # 0.6 (0.1-0.6); RED CELL DISTRIBUTION WIDTH 15.1 % (11.5-14.5); WHITE BLOOD COUNT 9.5 10^3/ul (4.5-11.0)
[2017-07-17 10:39] LABS: HEMATOCRIT 22.6 % (36.0-48.0)
[2017-07-17] MEDS ORDERED: Lidocaine 2% Inj (20ml) ONE ×2 (13:20→14:13)
[2017-07-17] MEDS ORDERED: Midazolam 2 MG/2 ML VIAL ONE (14:19)
--- NOTE | 2017-07-17 14:24 | CP.PCM.PN ---
<Anny Daly - Last Filed: 07/17/17 14:21> Subjective - Date & Time of Evaluation Date of Evaluation: 07/17/17 Time of Evaluation: 09:30 - Subjective Subjective: Seen and examined and chart reviewed earlier this am, patient is status post endoscopy, found to have created duodenal ulcer with blood oozing and visible vessel in the duodenal bulb. Total of 4 units of packed RBCs given. Patient denies nausea, vomiting or hematemesis. No bowel movements or reported bleeding per rectum. Spoke to daughter at bedside Objective - Vital Signs/Intake and Output Vital Signs (last 24 hours): Temp Pulse Resp BP Pulse Ox 98 F 60 13 99/58 L 100 07/17/17 12:27 07/17/17 13:20 07/17/17 13:20 07/17/17 13:15 07/17/17 10:20 Intake and Output: 07/17/17 07/17/17 06:59 18:59 Intake Total 1666 0 Output Total 650 Balance 1016 0 - Medications Medications: Current Medications Sodium Chloride (Sodium Chloride 0.9%) 1,000 mls @ 80 mls/hr IV .[id number] [facility] Last Admin: 07/17/17 05:53 Dose: 80 mls/hr Pantoprazole Sodium (Protonix 40mg Ivpb) 40 mg in 100 mls @ 8 mls/hr IVPB .[id number] [facility] Last Admin: 07/17/17 08:37 Dose: 8 mls/hr Insulin Human Regular (Humulin R Low) 0 units SC ACHS [facility] PRN Reason: Protocol Last Admin: 07/17/17 12:18 Dose: Not Given Lisinopril (Zestril) 10 mg PO DAILY [facility] Last Admin: 07/17/17 09:08 Dose: 10 mg Ondansetron HCl (Zofran Inj) 4 mg IVP Q4H PRN PRN Reason: Nausea/Vomiting Last Admin: 07/16/17 17:12 Dose: 4 mg Sertraline HCl (Zoloft) 50 mg PO DAILY [facility] Last Admin: 07/17/17 09:09 Dose: 50 mg - Labs Labs: 07/17/17 10:10 07/17/17 07:00 PT 13.7 SECONDS (9.4-12.5) H 07/12/17 18:00 INR 1.25 (0.93-1.08) H 07/12/17 18:00 APTT 28.1 Seconds (25.1-36.5) 07/12/17 18:00 - Constitutional Appears: No Acute Distress - Head Exam Head Exam: NORMOCEPHALIC - Eye Exam Eye Exam: Normal appearance. absent: Scleral icterus - ENT Exam ENT Exam: Mucous Membranes Moist - Neck Exam Neck Exam: Normal Inspection - Respiratory Exam Respiratory Exam: NORMAL BREATHING PATTERN. absent: Respiratory Distress - Cardiovascular Exam Cardiovascular Exam: +S1, +S2 - GI/Abdominal Exam GI & Abdominal Exam: Soft, Normal Bowel Sounds. absent: Guarding, Tenderness, Rebound - Extremities Exam Extremities Exam: absent: Calf Tenderness, Pedal Edema - Neurological Exam Neurological Exam: Alert, Awake, Oriented x3 ([place]) Assessment and Plan - Assessment and Plan (Free Text) Assessment: Assessment: GI bleed/melena/hematemsis, s/p egd , found duodenal ulcer w/ blood oozing and vissible vessel, s/p hemoclip x 3 Anemia secondary to GI bleed, status post total 4 units of packed RBC History of NSAID use H/O Arthritis Bradyarrhytmia DM, HTN PLAN: NPO , continue IVF for hydration continue Protonix drip CBC Q 4 hours monitor H/H, overt GI bleeding, transfuse as neccesary. planned for pacemamaker today recommend surgical/ IR evaluation if bleeding reoccurs or hemaglobin remains to decrease discussed with ICU team Seen and discussed w/ Dr. Muro. <Ronald,Kovil V - Last Filed: 07/17/17 22:55> Objective - Vital Signs/Intake and Output Vital Signs (last 24 hours): Temp Pulse Resp BP Pulse Ox 98.4 F 60 20 117/45 L 98 07/17/17 20:30 07/17/17 20:34 07/17/17 20:30 07/17/17 20:30 07/17/17 20:30 Intake and Output: 07/17/17 07/18/17 18:59 06:59 Intake Total 1381 335 Balance 1381 335 - Medications Medications: Current Medications Cephalexin Monohydrate (Keflex) 250 mg PO TID [facility] PRN Reason: Protocol Stop: 07/21/17 23:59 Last Admin: 07/17/17 18:36 Dose: 250 mg Sodium Chloride (Sodium Chloride 0.9%) 1,000 mls @ 80 mls/hr IV .[id number] [facility] Last Admin: 07/17/17 17:06 Dose: 80 mls/hr Pantoprazole Sodium (Protonix 40mg Ivpb) 40 mg in 100 mls @ 8 mls/hr IVPB .[id number] [facility] Last Admin: 07/17/17 21:04 Dose: 8 mls/hr Insulin Human Regular (Humulin R Low) 0 units SC ACHS [facility] PRN Reason: Protocol Last Admin: 07/17/17 22:03 Dose: Not Given Lisinopril (Zestril) 10 mg PO DAILY [facility] Last Admin: 07/17/17 09:08 Dose: 10 mg Ondansetron HCl (Zofran Inj) 4 mg IVP Q4H PRN PRN Reason: Nausea/Vomiting Last Admin: 07/16/17 17:12 Dose: 4 mg Sertraline HCl (Zoloft) 50 mg PO DAILY [facility] Last Admin: 07/17/17 09:09 Dose: 50 mg - Labs Labs: 07/17/17 21:44 07/17/17 07:00 PT 13.7 SECONDS (9.4-12.5) H 07/12/17 18:00 INR 1.25 (0.93-1.08) H 07/12/17 18:00 APTT 28.1 Seconds (25.1-36.5) 07/12/17 18:00 Attending/Attestation - Attestation I have personally seen and examined this patient.: Yes I have fully participated in the care of the patient.: Yes I have reviewed all pertinent clinical information, including history, physical exam and plan: Yes Notes (Text): patient was seen earlier. Abdomen soft and no tenderness The drop in hemoglobin and blood being transfused Continue Protonix drip Discussed with icu resident 07/17/17 22:51
--- NOTE | 2017-07-17 15:50 | PN ---
DATE: 07/17/2017 REASON FOR CONSULTATION AND FOLLOWUP: Abnormal rhythm, high grade AV block, status post massive GI bleed, status post endoscopy, and cauterization. SUBJECTIVE: The patient denies any chest pain, shortness of breath, or any palpitation. Family is at the bedside. PHYSICAL EXAMINATION: As follows: GENERAL: Not in apparent distress. VITAL SIGNS: Heart rate 50, blood pressure 108/50. HEENT: PERRLA, intact. NECK: Supple. No carotid bruits or thyromegaly. CHEST: Clear to auscultation. HEART: S1 and S2 regular. ABDOMEN: Soft. EXTREMITIES: Clubbing and cyanosis negative. LABORATORY DATA: Blood workup as follows: WBC 9.5, hemoglobin 7.6, hemoglobin 22.6, and platelet count 182. Chemistry shows sodium 140, potassium 4, chloride 114, carbon dioxide 22, anion gap 12, BUN 53, and creatinine 1.1. IMPRESSION: Massive gastrointestinal bleed, status post endoscopy, ulcer bleeding, status post cauterization. Complete heart block, high grade, but hemodynamically stable, severe aortic stenosis, moderate mitral stenosis, right ventricle dilated, trace aortic regurgitation, severe valvular aortic stenosis, [id number] mitral regurgitation, [id number] tricuspid regurgitation, moderate valvular aortic stenosis, preserved left ventricular ejection fraction of 55%, and anemia. RECOMMENDATIONS: We will give 2 units of packed RBC's. Discussed with referring, taking care pacemaker today, discussed with the family. Family agreed, we will proceed forward with cardiac catheterization. Precious Yousif MD
--- NOTE | 2017-07-17 16:21 | RAD ---
HISTORY: S/P Post Pacemaker, R/o Pneumothorax COMPARISON: No prior. FINDINGS: LUNGS: No active pulmonary disease. PLEURA: No significant pleural effusion identified, no pneumothorax apparent. CARDIOVASCULAR: Normal. OSSEOUS STRUCTURES: No significant abnormalities. VISUALIZED UPPER ABDOMEN: Normal. OTHER FINDINGS: Single lead pacemaker IMPRESSION: No active disease.
--- NOTE | 2017-07-17 16:43 | CARD ---
APPROVED REPORT HISTORY The Patient is a 76 year-old female with a history of , MR admitted with Severe Gi Bleed and Hear Block PROCEDURES Insertion Single Chamber Ventricle Pacemaker INDICATIONS SSS high grade AV block bradycardia CONSCIOUS SEDATION AGENTS Versed Fentanyl IMPLANTED DEVICES Medtronic 5076-58 cm..... Ventricular Lead Active ( MRI safe) Medtronic pulse generator.... ADVISA SR (MRI Safe) OPERATIVE NOTE The patient was brought to the Cardiac Catheterization Laboratory in a fasting state and was prepped and draped in a sterile manner. The left subclavian region was infiltrated with 2% Lidocaine, subcutaneous anesthesia. A transverse incision was made in the left subclavicular area. The subcutaneous pocket was formed via blunt dissection, Percutaneous venous access was achieved and an introducer sheath was inserted into the Lt Subclavian vein. Through the introducer sheath, the ventricular lead wire was postitioned in the right ventricular apex utilizing fluoroscopic guidance. The ventricular was advanced over the wire under fluoroscopic guidance and positioned in the right ventricle. Capturing and sensing thresholds were verified. THE VENTRICULAR ELECTRODE PARAMETERS R WAVE 14.5 THRESHOLD0.5 RESISTANCE 855 The ventricular lead was then secured using silk 0. The subcutaneous pocket was irrigated with Betadine. The ventricular lead was attached to the appropriate receptacle on the pulse generator and set screws firmly tightened to insure adequate contact and stability. The lead and pulse generator were placed into the subcutaneous pocket. Sharp and sponge counts were confirmed to be correct. At this time the pocket was closed subcutaneously with a Vicryl 2.0 and the skin was closed with a Vicryl 4.0 .The operative site was dressed in sterile fashion. The patient tolerated the procedure well and was transferred to the floor in stable condition. COMPLICATIONS The patient tolerated the procedure well and there were no complications associated with the procedure. CONCLUSION Successful Implantation of Permanent Pace maker VVIR,ADVISA SR (MRI Safe) CC; ,T
--- NOTE | 2017-07-17 18:46 | CARD ---
APPROVED REPORT EKG Measurement Heart [id number] <Conclusion> Electronic ventricular pacemaker
[2017-07-17 21:47] LABS: BASO # 0.04 K/mm3 (0.0-2.0); BASO % 0.3 % (0.0-3.0); EOS # 0.2 (0.0-0.7); EOS % 1.8 % (1.5-5.0); GRAN # 9.27 (1.4-6.5); GRAN % 76.1 % (50.0-68.0); HEMATOCRIT 28.7 % (36.0-48.0); LYMPH # 1.8 (1.2-3.4); LYMPH % 14.7 % (22.0-35.0); MEAN CELL VOLUME 90.8 fl (80.0-105.0); MEAN CORPUSCULAR HEMOGLOBIN 30.4 pg (25.0-35.0); MEAN CORPUSCULAR HGB CONC 33.4 g/dl (31.0-37.0); MEAN PLATELET VOLUME 9.3 fl (7.0-11.0); MONO # 0.9 (0.1-0.6); MONO % 7.1 % (1.0-6.0); RED CELL DISTRIBUTION WIDTH 16.6 % (11.5-14.5); WHITE BLOOD COUNT 12.2 10^3/ul (4.5-11.0)
--- NOTE | 2017-07-18 02:46 | PN ---
DATE: 07/17/2017 SUBJECTIVE: Patient remains in ICU this . She underwent permanent pacemaker placement this morning. Labs were reviewed. Case discussed with Dr. Yousif. Patient is comfortable and stable. Extensive notes from senior [employer] administrator with auto-population of results, medications, etc. noted. Flip Bell MD
[2017-07-18] MEDS: Sodium Chloride 0.9% 1,000 ML IV SCH ×2 (04:30→22:12)
[2017-07-18 06:00] LABS: HEMATOCRIT 27.9 % (36.0-48.0); MEAN CELL VOLUME 90.9 fl (80.0-105.0); MEAN PLATELET VOLUME 9.7 fl (7.0-11.0); RED CELL DISTRIBUTION WIDTH 16.8 % (11.5-14.5); WHITE BLOOD COUNT 9.8 10^3/ul (4.5-11.0)
[2017-07-18 06:42] LABS: ALB/GLOB RATIO 1.1 (1.1-1.8); ALKALINE PHOSPHATASE 40 U/L (38-126); ALT/SGPT 30 U/L (7-56); AST/SGOT 18 U/L (14-36); BILIRUBIN,TOTAL 0.4 mg/dL (0.2-1.3); BLOOD UREA NITROGEN 34 mg/dL (7-21); CALCIUM 8.5 mg/dL (8.4-10.5); CARBON DIOXIDE 23 mmol/L (21-33); CHLORIDE 115 mmol/L (98-107); GFR AFRICAN-AMERICAN > 60; GLUCOSE,RANDOM 120 mg/dL (70-110); POTASSIUM 3.7 mmol/L (3.6-5.0); SODIUM 143 mmol/L (132-148); TOTAL PROTEIN 5.1 g/dL (5.8-8.3)
[2017-07-18] MEDS: Insulin Reg-LOW-Coverage SC SCH ×4 (08:33→22:12)
--- NOTE | 2017-07-18 09:27 | RAD ---
HISTORY: S/P PPM r/o pneumothorax COMPARISON: 07/17/2017 FINDINGS: LUNGS: No active pulmonary disease. PLEURA: No significant pleural effusion identified, no pneumothorax apparent. CARDIOVASCULAR: Mild cardiomegaly. Single lead pacemaker OSSEOUS STRUCTURES: No significant abnormalities. VISUALIZED UPPER ABDOMEN: Normal. OTHER FINDINGS: None. IMPRESSION: No evidence of pneumothorax
[2017-07-18] MEDS: Pantoprazole 40mg/100ml IVPB 40 MG/100 ML BAG IVPB SCH ×2 (09:34→22:15)
--- NOTE | 2017-07-18 11:36 | PN ---
DATE:07/18/2017 REASON FOR CONSULTATION AND FOLLOWUP: Abnormal rhythm, high-grade AV block, massive GI bleed, status post endoscopy, status post permanent pacemaker. SUBJECTIVE: The patient denies any chest pain, shortness of breath or any palpitation. Feels better. No further episode of vomiting noted. No dizziness. No chest pain. PHYSICAL EXAMINATION: VITAL SIGNS: As follows, temperature afebrile, heart rate 60, and blood pressure 125/47. HEENT: PERRLA. Extraocular muscles intact. NECK: Supple. No carotid bruits. No thyromegaly. CHEST: Clear to auscultation. HEART: S1 and S2, regular. ABDOMEN: Soft. EXTREMITIES: Clubbing and cyanosis negative. LABORATORY DATA: Blood workup as follows: WBC , hemoglobin 9.8, hematocrit 27.9, and platelet count 165. Chemistry shows sodium 143, potassium 3.7, chloride 115, carbon dioxide 23, anion gap of 9, BUN 34, and creatinine 1. Total protein 5.1, albumin 2.7, and albumin globulin ratio 1.1. IMPRESSION: Gastrointestinal bleed, status post endoscopy, status post cauterization, high-grade atrioventricular block, complete heart block, status post permanent pacemaker, status post multiple transfusions, status post endoscopy and cauterization, severe aortic stenosis, valvular aortic stenosis, preserved left ventricular ejection fraction of 65%, [id number] mitral regurgitation, moderate mitral stenosis, [id number] tricuspid regurgitation, right ventricular systolic pressure of 59, preserved left ventricular function, hypertension, and diabetes. RECOMMENDATIONS: Monitor H and H. Continue lisinopril for blood pressure. Continue proton pump inhibitor. Followup chest x-ray. First chest x-ray was negative for pneumothorax. Followup repeat chest x-ray routine. Continue antibiotic Keflex 250 mg t.i.d. for 4 days to prevent infection and the pacemaker site empiric therapy. Once the GI issue is resolved, we will discuss with the patient's family again about the long-term for aortic stenosis for evaluation, but for now let the ulcer heal for at least for 3 months. We will follow with you. Thank you Dr. Bell for providing me the opportunity in taking care of the patient, Cary Vera. CVS status is stable. The patient still in p.o. as per GI. Once p.o. is started, we will discontinue IV fluid. Monitor electrolytes. We will supplement K intravenous. We will repeat magnesium and phosphorus tomorrow. Monitor H and H. So far H and H is stable. Off aspirin because of obvious massive GI bleed. Precious Yousif MD
--- NOTE | 2017-07-18 13:14 | CP.CCUPN ---
<[place] - Last Filed: 07/18/17 15:10> CCU Subjective - Physician Review Subjective (Free Text): Critical care progress note Patient seen and examined at bedside. No acute overnight events or new complaints reported. No overt bleeding reported or noted on examination. Denies chest pain, palpitations, SOB. CCU Objective - Vital Signs / Intake & Output Vital Signs (Last 4 hours): Vital Signs Pulse 07/18/17 10:00 60 Intake and Output (Last 8hrs): Intake & Output 07/17/17 07/18/17 07/18/17 22:59 06:59 14:59 Intake Total 1391 1124 Output Total 700 Balance 1391 424 Weight 183 lb Intake: IV 1056 1124 Left Forearm 96 Right Forearm 960 1124 Oral 0 Blood Product 325 Red Blood Cells Cpd As1 325 Lr Unit [id number] Other 10 Red Blood Cells Cpd As1 10 Lr Unit [id number] Output: Urine 700 Urine, Voided 700 Emesis 0 Other: # Voids Urine, Voided 5 # Bowel Movements 1 - Physical Exam Head: Positive for: Atraumatic, Normocephalic Pupils: Positive for: PERRL Extroacular Muscles: Positive for: EOMI Respiratory/Chest: Negative for: Respiratory Distress, Accessory Muscle Use, Rales, Rhonchi Cardiovascular: Positive for: Murmurs (systolic murmur), Normal S1, S2. Negative for: Rub, Gallop Abdomen: Negative for: Tenderness, Distention, Peritoneal Signs Upper Extremity: Positive for: Normal Inspection. Negative for: Cyanosis, Edema Lower Extremity: Positive for: Normal Inspection. Negative for: Edema Neurological: Positive for: CN II-XII Intact Skin: Positive for: Warm, Dry Psychiatric: Positive for: Alert, Oriented x 3, Normal Insight, Normal Concentration - Medications Active Medications: Active Medications Generic Name Dose Route Start Last Admin Trade Name Freq PRN Reason Stop Dose Admin Cephalexin Monohydrate 250 mg 07/17/17 18:00 07/18/17 13:07 Keflex PO 07/21/17 23:59 250 mg TID MUKUND Administration Protocol Pantoprazole Sodium 40 mg in 100 mls @ 8 mls/hr 07/16/17 08:30 07/18/17 09:34 Protonix 40mg Ivpb IVPB 8 mls/hr .[id number] MUKUND Administration Sodium Chloride 1,000 mls @ 100 mls/hr 07/18/17 04:27 07/18/17 04:30 Sodium Chloride 0.9% IV 100 mls/hr .Q10H MUKUND Administration Insulin Human Regular 0 units 07/13/17 07:30 07/18/17 11:56 Humulin R Low SC Not Given ACHS [facility] Protocol Lisinopril 10 mg 07/13/17 10:00 07/17/17 09:08 Zestril PO 10 mg DAILY MUKUND Administration Ondansetron HCl 4 mg 07/16/17 07:54 07/16/17 17:12 Zofran Inj IVP 4 mg Q4H PRN Administration Nausea/Vomiting Sertraline HCl 50 mg 07/13/17 10:00 07/18/17 10:14 Zoloft PO 50 mg DAILY MUKUND Administration - Patient Studies Lab Studies: Lab Studies 07/18/17 07/18/17 07/18/17 Range/Units 11:40 08:18 05:30 WBC (4.5-11.0) 10^3/ul RBC (3.5-6.1) 10^6/uL Hgb (12.0-16.0) g/dL Hct (36.0-48.0) % MCV (80.0-105.0) fl MCH (25.0-35.0) pg MCHC (31.0-37.0) g/dl RDW (11.5-14.5) % Plt Count (120.0-450.0) 10^3/uL MPV (7.0-11.0) fl Gran % (50.0-68.0) % Lymph % (Auto) (22.0-35.0) % [place] % (Auto) (1.0-6.0) % Eos % (Auto) (1.5-5.0) % Baso % (Auto) (0.0-3.0) % Gran # (1.4-6.5) Lymph # (1.2-3.4) [place] # (0.1-0.6) Eos # (0.0-0.7) Baso # (0.0-2.0) K/mm3 Sodium 143 (132-148) mmol/L Potassium 3.7 (3.6-5.0) mmol/L Chloride 115 H (98-107) mmol/L Carbon Dioxide 23 (21-33) mmol/L Anion Gap 9 L (10-20) BUN 34 H (7-21) mg/dL Creatinine 1.0 (0.7-1.2) mg/dl Est GFR ( Amer) > 60 Est GFR (Non-Af Amer) 54 POC Glucose (mg/dL) 147 H 142 H (65-110) mg/dL Random Glucose 120 H (70-110) mg/dL Calcium 8.5 (8.4-10.5) mg/dL Total Bilirubin 0.4 (0.2-1.3) mg/dL AST 18 (14-36) U/L ALT 30 (7-56) U/L Alkaline Phosphatase 40 (38-126) U/L Total Protein 5.1 L (5.8-8.3) g/dL Albumin 2.7 L (3.0-4.8) g/dL Globulin 2.4 gm/dL Albumin/Globulin Ratio 1.1 (1.1-1.8) Blood Type Antibody Screen Crossmatch BBK History Checked 07/18/17 07/17/17 07/17/17 Range/Units 05:30 22:03 21:44 WBC 9.8 12.2 H D (4.5-11.0) 10^3/ul RBC 3.07 L 3.16 L (3.5-6.1) 10^6/uL Hgb 9.2 L 9.6 L D (12.0-16.0) g/dL Hct 27.9 L 28.7 L (36.0-48.0) % MCV 90.9 90.8 (80.0-105.0) fl MCH 30.0 30.4 (25.0-35.0) pg MCHC 33.0 33.4 (31.0-37.0) g/dl RDW 16.8 H 16.6 H (11.5-14.5) % Plt Count 165 162 (120.0-450.0) 10^3/uL MPV 9.7 9.3 (7.0-11.0) fl Gran % 76.1 H (50.0-68.0) % Lymph % (Auto) 14.7 L (22.0-35.0) % [place] % (Auto) 7.1 H (1.0-6.0) % Eos % (Auto) 1.8 (1.5-5.0) % Baso % (Auto) 0.3 (0.0-3.0) % Gran # 9.27 H (1.4-6.5) Lymph # 1.8 (1.2-3.4) [place] # 0.9 H (0.1-0.6) Eos # 0.2 (0.0-0.7) Baso # 0.04 (0.0-2.0) K/mm3 Sodium (132-148) mmol/L Potassium (3.6-5.0) mmol/L Chloride (98-107) mmol/L Carbon Dioxide (21-33) mmol/L Anion Gap (10-20) BUN (7-21) mg/dL Creatinine (0.7-1.2) mg/dl Est GFR ( Amer) Est GFR (Non-Af Amer) POC Glucose (mg/dL) 128 H (65-110) mg/dL Random Glucose (70-110) mg/dL Calcium (8.4-10.5) mg/dL Total Bilirubin (0.2-1.3) mg/dL AST (14-36) U/L ALT (7-56) U/L Alkaline Phosphatase (38-126) U/L Total Protein (5.8-8.3) g/dL Albumin (3.0-4.8) g/dL Globulin gm/dL Albumin/Globulin Ratio (1.1-1.8) Blood Type Antibody Screen Crossmatch BBK History Checked 07/17/17 07/16/17 Range/Units 16:30 08:35 WBC (4.5-11.0) 10^3/ul RBC (3.5-6.1) 10^6/uL Hgb (12.0-16.0) g/dL Hct (36.0-48.0) % MCV (80.0-105.0) fl MCH (25.0-35.0) pg MCHC (31.0-37.0) g/dl RDW (11.5-14.5) % Plt Count (120.0-450.0) 10^3/uL MPV (7.0-11.0) fl Gran % (50.0-68.0) % Lymph % (Auto) (22.0-35.0) % [place] % (Auto) (1.0-6.0) % Eos % (Auto) (1.5-5.0) % Baso % (Auto) (0.0-3.0) % Gran # (1.4-6.5) Lymph # (1.2-3.4) [place] # (0.1-0.6) Eos # (0.0-0.7) Baso # (0.0-2.0) K/mm3 Sodium (132-148) mmol/L Potassium (3.6-5.0) mmol/L Chloride (98-107) mmol/L Carbon Dioxide (21-33) mmol/L Anion Gap (10-20) BUN (7-21) mg/dL Creatinine (0.7-1.2) mg/dl Est GFR ( Amer) Est GFR (Non-Af Amer) POC Glucose (mg/dL) 155 H (65-110) mg/dL Random Glucose (70-110) mg/dL Calcium (8.4-10.5) mg/dL Total Bilirubin (0.2-1.3) mg/dL AST (14-36) U/L ALT (7-56) U/L Alkaline Phosphatase (38-126) U/L Total Protein (5.8-8.3) g/dL Albumin (3.0-4.8) g/dL Globulin gm/dL Albumin/Globulin Ratio (1.1-1.8) Blood Type O NEGATIVE Antibody Screen Negative Crossmatch See Detail BBK History Checked Patient has bt Laboratory Results - last 24 hr 07/16/17 07/17/17 07/17/17 08:35 16:30 21:44 WBC 12.2 H D RBC 3.16 L Hgb 9.6 L D Hct 28.7 L MCV 90.8 MCH 30.4 MCHC 33.4 RDW 16.6 H Plt Count 162 MPV 9.3 Gran % 76.1 H Lymph % (Auto) 14.7 L [place] % (Auto) 7.1 H Eos % (Auto) 1.8 Baso % (Auto) 0.3 Gran # 9.27 H Lymph # 1.8 [place] # 0.9 H Eos # 0.2 Baso # 0.04 Sodium Potassium Chloride Carbon Dioxide Anion Gap BUN Creatinine Est GFR ( Amer) Est GFR (Non-Af Amer) POC Glucose (mg/dL) 155 H Random Glucose Calcium Total Bilirubin AST ALT Alkaline Phosphatase Total Protein Albumin Globulin Albumin/Globulin Ratio Blood Type O NEGATIVE Antibody Screen Negative Crossmatch See Detail BBK History Checked Patient has bt 07/17/17 07/18/17 07/18/17 22:03 05:30 05:30 WBC 9.8 RBC 3.07 L Hgb 9.2 L Hct 27.9 L MCV 90.9 MCH 30.0 MCHC 33.0 RDW 16.8 H Plt Count 165 MPV 9.7 Gran % Lymph % (Auto) [place] % (Auto) Eos % (Auto) Baso % (Auto) Gran # Lymph # [place] # Eos # Baso # Sodium 143 Potassium 3.7 Chloride 115 H Carbon Dioxide 23 Anion Gap 9 L BUN 34 H Creatinine 1.0 Est GFR ( Amer) > 60 Est GFR (Non-Af Amer) 54 POC Glucose (mg/dL) 128 H Random Glucose 120 H Calcium 8.5 Total Bilirubin 0.4 AST 18 ALT 30 Alkaline Phosphatase 40 Total Protein 5.1 L Albumin 2.7 L Globulin 2.4 Albumin/Globulin Ratio 1.1 Blood Type Antibody Screen Crossmatch BBK History Checked 07/18/17 07/18/17 08:18 11:40 WBC RBC Hgb Hct MCV MCH MCHC RDW Plt Count MPV Gran % Lymph % (Auto) [place] % (Auto) Eos % (Auto) Baso % (Auto) Gran # Lymph # [place] # Eos # Baso # Sodium Potassium Chloride Carbon Dioxide Anion Gap BUN Creatinine Est GFR ( Amer) Est GFR (Non-Af Amer) POC Glucose (mg/dL) 142 H 147 H Random Glucose Calcium Total Bilirubin AST ALT Alkaline Phosphatase Total Protein Albumin Globulin Albumin/Globulin Ratio Blood Type Antibody Screen Crossmatch BBK History Checked EKG/Cardiology Studies: Cardiology / EKG Studies 07/17/17 15:27 ELECTROCARDIOGRAM Stat Comment: Reason For Exam: S/p pPM PERFORMING PHYSICIAN/PROVIDER:: Precious Yousif Fingerstick Blood Sugar Results: 147 Critical Care Progress Note - Nutrition Nutrition: Nutrition Category Date Time Status Consistent Carbohydrate [DIET] Diets 12/15/17 Breakfast Ordered Assessment/Plan - Assessment and Plan (Free Text) Plan: 76yo female with history of hypertension, DM admitted to the ICU secondary to acute upper GI bleed s/p endoscopic intervention and 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 Cardenas with 3 clips placed and injected with epinephrine -Protonix drip -No overt bleeding at this time -Trending H/H and transfusing as indicated; presently stable at 9.2 -Received a total of 6u pRBC Endo: -monitor and maintain euglycemia with blood glucose between 140-180 -consistent carb diet -fingersticks ACHS -ISS Nephro: -monitor and correct electrolyte abnormalities as indicated Heme: -no overt bleeding at this time; continuing to trend H/H -transfused total of 6u pRBC ID: -afebrile, no leukocytosis -no signs/symptoms of infection at this time Patient seen and case discussed/reviewed with attending, Dr. Andino Assessment/Plan Progress Note - Problems Patient Problems: Problem List (Active/Current) Problem Status Onset Code GI bleed Acute K92.2 <Watson Andino - Last Filed: 07/23/17 12:08> CCU Objective - Vital Signs / Intake & Output Intake and Output (Last 8hrs): Intake & Output 07/22/17 07/23/17 07/23/17 22:59 06:59 14:59 Intake Total 300 Balance 300 Intake: Oral 300 Other: # Voids Urine, Voided 1 3 # Bowel Movements 0 - Medications Active Medications: Active Medications Generic Name Dose Route Start Last Admin Trade Name Freq PRN Reason Stop Dose Admin Docusate Sodium 100 mg 07/20/17 15:15 07/23/17 10:46 Colace PO 100 mg DAILY MUKUND Administration Insulin Human Regular 0 units 07/13/17 07:30 07/23/17 10:46 Humulin R Low SC Not Given ACHS [facility] Protocol Lisinopril 10 mg 07/13/17 10:00 07/17/17 09:08 Zestril PO 10 mg DAILY MUKUND Administration Ondansetron HCl 4 mg 07/16/17 07:54 07/16/17 17:12 Zofran Inj IVP 4 mg Q4H PRN Administration Nausea/Vomiting Pantoprazole Sodium 40 mg 07/20/17 16:00 07/23/17 08:45 Protonix Ec Tab PO Not Given 0600,1600 [facility] Sertraline HCl 50 mg 07/13/17 10:00 07/23/17 10:46 Zoloft PO 50 mg DAILY MUKUND Administration - Patient Studies Lab Studies: Lab Studies 07/23/17 07/23/17 07/22/17 Range/Units 11:47 08:05 21:51 POC Glucose (mg/dL) 182 H 132 H 149 H (65-110) mg/dL 07/22/17 Range/Units 16:42 POC Glucose (mg/dL) 132 H (65-110) mg/dL Laboratory Results - last 24 hr 07/22/17 07/22/17 07/23/17 16:42 21:51 08:05 POC Glucose (mg/dL) 132 H 149 H 132 H 07/23/17 11:47 POC Glucose (mg/dL) 182 H Critical Care Progress Note - Nutrition Nutrition: Nutrition Category Date Time Status Consistent Carbohydrate [DIET] Diets 07/18/17 Breakfast Ordered Assessment/Plan Progress Note - Assessment/Plan Assessment (Free Text): 76 yo female with acute upper GI bleed, s/p endoscopy with established hemostasis, hemodynamically and respiratory centeno stable. s/p PM for second degree type I AVB. advance diet, continue PPI, wean serial CBC. ok to downgrade to tele.
--- NOTE | 2017-07-18 18:50 | PN ---
DATE: 07/17/2017 SUBJECTIVE: Patient is seen and examined at bedside. She is comfortable. She talks in full sentences. She is not in respiratory or otherwise distress. She is sitting in the chair and daughter taking care of her hair. She is alert, awake, and oriented x3. Overnight, her hemoglobin dropped to 7.6 and 2 units of blood were ordered. PHYSICAL EXAMINATION: VITAL SIGNS: Patient is afebrile, blood pressure 134/44, oxygen saturation 98%, respiratory rate 18. HEENT: Head and neck atraumatic. LUNGS: Clear to auscultation bilaterally. HEART: Regular rate and rhythm, S1, S2 normal. ABDOMEN: Soft, nontender, nondistended. MUSCULOSKELETAL: No C/C/E. NEUROLOGIC: Patient moves all extremities spontaneously. SKIN: Moist. PSYCHIATRIC: Patient is alert and oriented x3. LABORATORY DATA: WBC 9.5, hemoglobin is 7.6, platelet count 182. Sodium 143, potassium 3.7, chloride 115, carbon dioxide 23, BUN 34, creatinine 1, glucose 147. AST 18, ALT 30. MEDICATIONS: Keflex, regular insulin sliding scale low protocol, lisinopril, Zofran p.r.n., Protonix, Zoloft, normal saline 100 mL/hour. ASSESSMENT AND PLAN: This is a 76-year-old lady with massive upper GI bleed who presented to ICU for further management and monitoring. Patient had endoscopy with subsequently achieved hemostasis. Today, patient had another hemoglobin checked, which dropped down about 2 g. Most likely, it is dilutional and secondary to equilibration of intravascular volume. Patient will be transfused another 2 units and then we will recheck her hemoglobin again. Patient will be going for pacemaker placement for her seconf degree type I atrioventricular block. Patient is hemodynamically and respiratory centeno stable. We will continue to target euvolemia, euglycemia, normothermia, and oxygen saturation more than 90%. We will continue with deep venous thrombosis and gastrointestinal prophylaxis. ccm time 40 min Watson Adnino MD MTDPenleope
[2017-07-19] MEDS: Sodium Chloride 0.9% 1,000 ML IV SCH ×3 (02:35→22:18)
[2017-07-19 07:19] LABS: HEMATOCRIT 27.6 % (36.0-48.0); MEAN CELL VOLUME 91.4 fl (80.0-105.0); MEAN CORPUSCULAR HEMOGLOBIN 30.5 pg (25.0-35.0); MEAN CORPUSCULAR HGB CONC 33.3 g/dl (31.0-37.0); MEAN PLATELET VOLUME 9.7 fl (7.0-11.0); RED CELL DISTRIBUTION WIDTH 16.4 % (11.5-14.5); WHITE BLOOD COUNT 9.2 10^3/ul (4.5-11.0)
[2017-07-19] MEDS: Insulin Reg-LOW-Coverage SC SCH ×4 (08:02→22:19)
[2017-07-19 08:14] LABS: ALB/GLOB RATIO 1.1 (1.1-1.8); ALKALINE PHOSPHATASE 49 U/L (38-126); ALT/SGPT 27 U/L (7-56); AST/SGOT 21 U/L (14-36); BILIRUBIN,TOTAL 0.4 mg/dL (0.2-1.3); BLOOD UREA NITROGEN 21 mg/dL (7-21); CALCIUM 8.4 mg/dL (8.4-10.5); CARBON DIOXIDE 20 mmol/L (21-33); CHLORIDE 112 mmol/L (98-107); GFR AFRICAN-AMERICAN > 60; GLUCOSE,RANDOM 107 mg/dL (70-110); MAGNESIUM 1.5 mg/dL (1.7-2.2); PHOSPHOROUS 2.7 mg/dL (2.5-4.5); POTASSIUM 3.6 mmol/L (3.6-5.0); SODIUM 138 mmol/L (132-148); TOTAL PROTEIN 5.1 g/dL (5.8-8.3)
[2017-07-19] MEDS: Pantoprazole 40mg/100ml IVPB 40 MG/100 ML BAG IVPB SCH ×2 (12:13→23:31)
[2017-07-19] MEDS ORDERED: Magnesium Sulfate 1 gm in D5W 1 GM/100 ML BAG IVPB ONE (18:20)
--- NOTE | 2017-07-19 23:26 | PN ---
DATE: 07/19/2017 LOCATION: The patient in room 271, bed 1. REASON FOR CONSULTATION AND FOLLOWUP: High-grade AV block, massive GI bleeding, status post endoscopy, status post permanent pacemaker. SUBJECTIVE: The patient lying flat in bed without chest pain, short of breath, palpitation. No dizziness. PHYSICAL EXAMINATION: VITAL SIGNS: Blood pressure 127/61, respirations 18, pulse 59 and temperature 98.2. HEENT: Head is normocephalic. Eyes; pupils normal. Conjunctivae slightly pale. NECK: JVP is low. Carotids are equal. THORAX: AP diameter normal. LUNGS: Clear. CARDIOVASCULAR: S1 and S2. Pacemaker site healing well. ABDOMEN: Soft and nontender. No organomegaly. Bowel sounds normal. EXTREMITIES: No clubbing. No cyanosis. LABORATORY DATA: WBC 9.2, hemoglobin 9.2, hematocrit 27.6 and platelet 169. Sodium 138, potassium 3.6, BUN 21, creatinine 0.8, sugar 121, calcium 8.4, phosphorus 2.7, and magnesium 1.5. AST and ALT normal. Total protein 5.1, albumin 2.7. DIAGNOSES: Gastrointestinal bleeding status post endoscopy, status post cauterization, high-grade atrioventricular block, complete heart block, status post permanent pacemaker insertion, status post multiple transfusions, severe aortic stenosis, preserved left ventricular ejection fraction of 65%, [id number] mitral regurgitation, moderate mitral stenosis, [id number] tricuspid regurgitation, right ventricular systolic pressure of 59 mmHg, hypertension, diabetes, moderate pulmonary hypertension, hypomagnesemia. PLAN: We will give magnesium sulfate. The patient is on Lisinopril 10 mg p.o. daily. The patient getting IV therapy, Keflex 250 p.o. t.i.d., Protonix 40 mg at 100 mL IV piggyback, 8 mL per hour Protonix drip, Zoloft 50 daily. Continue to follow hemoglobin and hematocrit. We will repeat SMA-7 and magnesium level in the morning. Precious Frost MD
--- NOTE | 2017-07-20 00:55 | PN ---
DATE: 07/18/2017 SUBJECTIVE: The patient was seen this Friday morning in the intensive care ICU bed 6 with her daughter and sister at the bedside. The patient is comfortable in bed, awake and alert, having received several units of packed red cells, undergone endoscopy and then pacemaker placement. Overhead monitor shows her rhythm to be paced at 60 beats per minute. She is in no acute distress, feeling good. Her diet has been advanced and she is up for transfer out of ICU to the medical floor. IMPRESSION: 1. Bleeding duodenal ulcer. 2. Bradyarrhythmias with a variety of heart blocks. 3. Hypertension. 4. Diabetes. 5. Osteoarthritis. PLAN: Transfer to telemetry monitored medical floor, increase activity, physical therapy, ambulation, out of bed. Case was discussed at great length with the patient's daughter and sister. I will continue to follow closely. Flip Bell MD MTDD
--- NOTE | 2017-07-20 01:06 | PN ---
DATE: 07/19/2017 SUBJECTIVE: The patient is seen this Friday morning in room 271, bed #1 with her daughter at the bedside. She is awake, alert, clear and in good spirits. No acute distress. No further episodes of hematemesis. She tolerated all diet well. PHYSICAL EXAMINATION: GENERAL: Moderately overweight. HEENT: Head and neck unremarkable. ABDOMEN: Soft. EXTREMITIES: Showed no edema. IMPRESSION: 1. Bleeding duodenal ulcer with acute hemorrhage, blood loss requiring transfusion. 2. Bradyarrhythmia with a variety of heart blocks including third-degree block; therefore, pacemaker has been placed. 3. History of hypertension. 4. History of diabetes. 5. Osteoarthritis. PLAN: We will continue her on advanced diet and increased activity level, and I discussed the discharge plans with the patient and daughter. We spoke about variety of options arranging from Transitional Care Unit at [facility] to home with home visiting nurse and physical therapy as well as daughter's support and assistance at home or the patient traveling to the daughter's house in the [place] during her recuperation days. They will be in touch with us to let us know. We will look into Transitional Care Unit at [facility] as well in the interim. Flip Bell MD
[2017-07-20 07:02] LABS: BASO # 0.03 K/mm3 (0.0-2.0); BASO % 0.3 % (0.0-3.0); EOS # 0.2 (0.0-0.7); EOS % 2.3 % (1.5-5.0); GRAN # 7.37 (1.4-6.5); GRAN % 77.2 % (50.0-68.0); HEMATOCRIT 28.8 % (36.0-48.0); LYMPH # 1.2 (1.2-3.4); LYMPH % 12.2 % (22.0-35.0); MEAN CELL VOLUME 91.1 fl (80.0-105.0); MEAN CORPUSCULAR HEMOGLOBIN 30.7 pg (25.0-35.0); MEAN CORPUSCULAR HGB CONC 33.7 g/dl (31.0-37.0); MEAN PLATELET VOLUME 9.7 fl (7.0-11.0); MONO # 0.8 (0.1-0.6); RED CELL DISTRIBUTION WIDTH 16.5 % (11.5-14.5); WHITE BLOOD COUNT 9.5 10^3/ul (4.5-11.0)
[2017-07-20] MEDS: Insulin Reg-LOW-Coverage SC SCH ×4 (07:46→22:26)
[2017-07-20 08:15] LABS: ALB/GLOB RATIO 1.1 (1.1-1.8); ALKALINE PHOSPHATASE 58 U/L (38-126); ALT/SGPT 21 U/L (7-56); AST/SGOT 20 U/L (14-36); BILIRUBIN,TOTAL 0.3 mg/dL (0.2-1.3); BLOOD UREA NITROGEN 14 mg/dL (7-21); CALCIUM 8.6 mg/dL (8.4-10.5); CARBON DIOXIDE 23 mmol/L (21-33); CHLORIDE 110 mmol/L (98-107); GFR AFRICAN-AMERICAN > 60; GLUCOSE,RANDOM 132 mg/dL (70-110); POTASSIUM 3.6 mmol/L (3.6-5.0); SODIUM 141 mmol/L (132-148); TOTAL PROTEIN 5.3 g/dL (5.8-8.3)
[2017-07-20] MEDS: Sodium Chloride 0.9% 1,000 ML IV SCH (08:40)
[2017-07-20] MEDS: Pantoprazole 40mg/100ml IVPB 40 MG/100 ML BAG IVPB SCH (13:30)
[2017-07-20] MEDS: Pantoprazole 40 mg EC Tab PO SCH (18:08)
--- NOTE | 2017-07-20 20:31 | PN ---
DATE: 07/20/2017 SUBJECTIVE: This patient was seen and evaluated earlier today. Patient's family was at bedside; tolerating the diet. Concerned about no bowel movements for the last 2 days. PHYSICAL EXAMINATION: VITAL SIGNS: Temperature 98.3, blood pressure 135/64, pulse 61, respiration is 17. HEENT: Atraumatic, anicteric. NECK: Supple. HEART: S1 and S2 heard. LUNGS: Bilateral air entry present. ABDOMEN: Soft. There is no mass palpable, no tenderness. EXTREMITIES: No cyanosis or clubbing. NEUROLOGIC: Alert and oriented; moves all extremities. LABORATORY DATA: Hemoglobin 9.7, stable; hematocrit 28.8; WBC is 9.5; platelets 191. Chemistry is essentially unremarkable. IMPRESSION: This 76-year-old patient admitted with massive gastrointestinal bleeding status post endo therapy with clipping and cauterization and clipping of the large duodenal ulcer. Patient also had bradyarrhythmia, heart block status post pacemaker placement. Hemoglobin has been stable now. Presently on Protonix drip. RECOMMENDATIONS: 1. We will discontinue the Protonix and change it to Protonix 40 mg q.12 hourly. Patient was on octri= 2. We would recommend follow up of the hemoglobin and hematocrit. We will give a dose of Colace, stool softeners p.r.n. basis for constipation. Patient would benefit from repeating the endoscopy in 4-6 weeks' time to evaluate the duodenal ulceration. Elective treatment for H. pylori if positive. Thank you very much for allowing us to participate in the care of the patient. Hansel Cardenas MD DALJIT
--- NOTE | 2017-07-20 21:56 | PN ---
DATE: 07/20/2017 SUBJECTIVE: The patient was seen this Friday morning in room 271, bed 1. She was in bed, comfortable, quite happy and delighted to see me. Breathing easily. No chest pain. No abdominal symptoms. No reports of palpitations, lightheadedness and dizziness. PHYSICAL EXAMINATION: HEAD AND NECK: Unremarkable. Conjunctiva pink. Mucous membranes moist. NECK: Supple with no masses. HEART: Regular. Right now above 60 beats per minute. ABDOMEN: Soft and nontender. EXTREMITIES: Show no edema. IMPRESSION: 1. Acute gastrointestinal bleeding from duodenal ulcer. 2. Multiple cardiac arrhythmias and heart blocks including third block, resulting in permanent pacemaker placement. 3. Hypertension. 4. Diabetes. PLAN: The patient is doing very well. We will see how she does getting out of bed with Physical Therapy and I presented options to the patient and her family including Trans[facility]. If she is doing well,we may opt for discharge to home and the patient will go to her daughter's house in [place]. I will ask case management and oncology social work to work with the daughter and patient after we hear from Physical Therapy, about the patient's abilities and progress, and we may be able to arrange for visiting nurse followup in [place] and allow for discharge possibly as early as Friday. Flip Bell MD MTDPenelope
[2017-07-21 06:01] LABS: BASO # 0.02 K/mm3 (0.0-2.0); BASO % 0.2 % (0.0-3.0); EOS # 0.2 (0.0-0.7); EOS % 2.7 % (1.5-5.0); GRAN # 5.85 (1.4-6.5); GRAN % 70.7 % (50.0-68.0); HEMATOCRIT 28.4 % (36.0-48.0); LYMPH # 1.4 (1.2-3.4); LYMPH % 17.1 % (22.0-35.0); MEAN CELL VOLUME 91.6 fl (80.0-105.0); MEAN CORPUSCULAR HEMOGLOBIN 30.3 pg (25.0-35.0); MEAN CORPUSCULAR HGB CONC 33.1 g/dl (31.0-37.0); MEAN PLATELET VOLUME 9.5 fl (7.0-11.0); MONO # 0.8 (0.1-0.6); MONO % 9.3 % (1.0-6.0); RED CELL DISTRIBUTION WIDTH 16.5 % (11.5-14.5); WHITE BLOOD COUNT 8.3 10^3/ul (4.5-11.0)
[2017-07-21] MEDS: Pantoprazole 40 mg EC Tab PO SCH ×2 (06:36→18:40)
[2017-07-21 06:37] LABS: ALKALINE PHOSPHATASE 62 U/L (38-126); ALT/SGPT 23 U/L (7-56); AST/SGOT 21 U/L (14-36); BILIRUBIN,TOTAL 0.4 mg/dL (0.2-1.3); BLOOD UREA NITROGEN 12 mg/dL (7-21); CALCIUM 8.9 mg/dL (8.4-10.5); CARBON DIOXIDE 26 mmol/L (21-33); CHLORIDE 108 mmol/L (98-107); GFR AFRICAN-AMERICAN > 60; GLUCOSE,RANDOM 136 mg/dL (70-110); POTASSIUM 3.2 mmol/L (3.6-5.0); SODIUM 138 mmol/L (132-148); TOTAL PROTEIN 5.4 g/dL (5.8-8.3)
[2017-07-21 07:13] LABS: ALB/GLOB RATIO 1.1 (1.1-1.8)
[2017-07-21] MEDS: Insulin Reg-LOW-Coverage SC SCH ×3 (08:43→18:28)
--- NOTE | 2017-07-21 09:03 | PN ---
DATE: 07/18/2017 SUBJECTIVE: This patient was seen and evaluated earlier today. The patient's daughter was at bedside, comfortable, and tolerating the diet. PHYSICAL EXAMINATION: VITAL SIGNS: Temperature is 98.6, pulse is 80, and blood pressure is 121/47. HEENT: Atraumatic. Anicteric. NECK: Supple. HEART: S1 and S2 heard. LUNGS: Bilateral air entry present. ABDOMEN: Soft. EXTREMITIES: No edema. No cyanosis. No clubbing. LABORATORY DATA: Hemoglobin of 9.2, hematocrit of 27.9, WBC of 9.8, and platelets of 165. BUN of 34 and creatinine of 1.0. IMPRESSION AND PLAN: This is a 76-year-old patient admitted with history of nonsteroidal anti-inflammatory drugs for arthritis pain, admitted with severe upper gastrointestinal bleeding. Endoscopy showed duodenal ulcer with visible vessel treated with hemoclips. The patient also had a pacemaker placement done yesterday. Clinically, the patient is now tolerating the diet. The patient has been transferred to the telemetry from ICU. We would recommend at this point to continue the high dose PPI,dc protonix drip. Followup Hb/Hct Hansel Cardenas MD MTDD
--- NOTE | 2017-07-21 09:12 | PN ---
DATE: 07/20/2017 LOCATION: The patient is in room 271, bed 1. REASON FOR CONSULTATION AND FOLLOWUP: High-grade AV block, massive GI bleeding, status post endoscopy, status post permanent pacemaker insertion. SUBJECTIVE: The patient denies chest pain, shortness of breath, or palpitation. PHYSICAL EXAMINATION: VITAL SIGNS: Blood pressure 135/64, respirations 17, pulse 61 and temperature 98.3. HEENT: Head is normocephalic. Eyes; pupils normal. Conjunctivae slightly pale. NECK: JVP is low. Carotids are equal. THORAX: AP diameter normal. LUNGS: Clear. CARDIOVASCULAR: S1 and S2. ABDOMEN: Soft and nontender. No organomegaly. Bowel sounds normal. EXTREMITIES: No clubbing. No cyanosis. LABORATORY DATA: WBC 9.5, hemoglobin 9.7, hematocrit 28.8, and platelet 191. Sodium 141, potassium 3.6, BUN 14, creatinine 0.9. Random sugar 121. AST and ALT normal. Total protein 5.3, albumin 2.8. DIAGNOSES: Gastrointestinal bleeding, status post endoscopy, status post cauterization, high-grade atrioventricular block, complete heart block, status post permanent pacemaker insertion, status post multiple blood transfusions, severe aortic stenosis, preserved left ventricular ejection fraction of 65%, [id number] mitral regurgitation, moderate mitral stenosis, [id number] tricuspid regurgitation, right ventricular systolic pressure of 59 mmHg suggestive of moderate pulmonary hypertension, diabetes, and hypertension. PLAN: The patient is on Keflex 250 mg t.i.d., yesterday magnesium sulfate 1 g bolus was given, lisinopril 10 mg daily, Protonix 40 mg p.o. b.i.d., Zoloft 50 mg daily. We will continue present therapy. We will follow with you. Precious Frost MD
[2017-07-21] MEDS ORDERED: Potassium Chloride 20 mEq ER Tab PO ONE ×2 (11:42→16:00)
--- NOTE | 2017-07-21 14:19 | PN ---
DATE: 07/21/2017 REASON FOR CONSULTATION AND FOLLOWUP: High-grade AV block, massive GI bleeding, status post endoscopy, status post permanent pacemaker. SUBJECTIVE: The patient denies any chest pain, shortness of breath, or any palpitation. OBJECTIVE: GENERAL: Not in apparent distress. VITAL SIGNS: Temperature afebrile, heart rate 58, blood pressure 110/51. HEENT: PERRLA. Extraocular muscles are intact. NECK: Supple. No carotid bruits or thyromegaly. CHEST: Clear to auscultation. HEART: S1 and S2, regular. ABDOMEN: Soft. EXTREMITIES: Clubbing and cyanosis negative. LABORATORY DATA: WBC 8.3, hemoglobin 9.1, hematocrit 28.4, platelet count 201. Chemistry shows sodium 130, potassium 3.0, chloride 108, carbon dioxide 26, anion gap of 8, BUN 12, creatinine 0.9, total protein 5.4, albumin 2.8. Albumin and globulin ratio 1.1. IMPRESSION: High-grade atrioventricular block, status post massive gastrointestinal bleed, status post cauterization, status post endoscopy, status post permanent pacemaker, severe aortic stenosis, preserved left ventricular ejection fraction of 55%, ajsi-ue-xuivaryy mitral regurgitation, moderate mitral stenosis, cyzg-bv-tjbybwiq tricuspid regurgitation, right ventricular systolic pressure of 59, diabetes, hypertension, and hyperlipidemia. RECOMMENDATIONS: Supplement aggressively electrolytes, hypokalemia, and increase additional support. The patient's protein calorie malnutrition was not present on admission with mild anemia, status post packed RBC transfusion, monitor H and H. Once the patient is stable, H and H are stopped. The patient can be discharged home and later on follow up for evaluation for TAVR, but it should be in the long shot. In the interim, continue current medication, supplement aggressively electrolytes. We will give the 2 doses of 40, one now, one at 4 o'clock. We will discontinue telemetry. Prceious Yousif MD
[2017-07-22] MEDS: Insulin Reg-LOW-Coverage SC SCH ×5 (00:53→22:31)
[2017-07-22 01:55] VITALS: PULSE 60
[2017-07-22 06:14] LABS: BASO # 0.02 K/mm3 (0.0-2.0); BASO % 0.2 % (0.0-3.0); EOS # 0.2 (0.0-0.7); EOS % 2.5 % (1.5-5.0); GRAN # 5.96 (1.4-6.5); GRAN % 69.9 % (50.0-68.0); HEMATOCRIT 28.7 % (36.0-48.0); LYMPH # 1.6 (1.2-3.4); LYMPH % 18.2 % (22.0-35.0); MEAN CELL VOLUME 92.9 fl (80.0-105.0); MEAN CORPUSCULAR HEMOGLOBIN 30.4 pg (25.0-35.0); MEAN CORPUSCULAR HGB CONC 32.8 g/dl (31.0-37.0); MONO # 0.8 (0.1-0.6); MONO % 9.2 % (1.0-6.0); RED CELL DISTRIBUTION WIDTH 16.4 % (11.5-14.5); WHITE BLOOD COUNT 8.5 10^3/ul (4.5-11.0)
[2017-07-22 06:52] LABS: ALB/GLOB RATIO 1.1 (1.1-1.8); ALKALINE PHOSPHATASE 59 U/L (38-126); ALT/SGPT 23 U/L (7-56); AST/SGOT 22 U/L (14-36); BILIRUBIN,TOTAL 0.4 mg/dL (0.2-1.3); BLOOD UREA NITROGEN 13 mg/dL (7-21); CALCIUM 9.1 mg/dL (8.4-10.5); CARBON DIOXIDE 26 mmol/L (21-33); CHLORIDE 107 mmol/L (98-107); GFR AFRICAN-AMERICAN > 60; GLUCOSE,RANDOM 128 mg/dL (70-110); MAGNESIUM 1.7 mg/dL (1.7-2.2); PHOSPHOROUS 3.1 mg/dL (2.5-4.5); POTASSIUM 4.3 mmol/L (3.6-5.0); SODIUM 140 mmol/L (132-148); TOTAL PROTEIN 5.7 g/dL (5.8-8.3)
[2017-07-22] MEDS: Pantoprazole 40 mg EC Tab PO SCH ×2 (06:56→16:47)
--- NOTE | 2017-07-22 11:35 | PN ---
DATE: 07/21/2017 DAILY PROGRESS NOTE SUBJECTIVE: The patient is a 76-year-old female who was admitted to [facility] with hematemesis. She was evaluated by Dr. Cardenas. Endoscopy was performed and found to have large duodenal ulcer with an exposed blood vessel. Three clips were placed. During her hospital course, she received a total of 6 units of packed red blood cells. 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 She was seen by Dr. Yousif and permanent pacemaker was implanted. When seen today, she is feeling well. She was comfortable in bed, voices no complaints. She had been up and walking around with physical therapy. PHYSICAL EXAMINATION: VITAL SIGNS: Her vital signs are stable. LABORATORY DATA: This morning, her lab shows CBC and chemistries to be relatively normal, although the potassium was slightly depressed at 3.2. PLAN: The patient is in good spirits, looking forward to discharge soon to home. Anjel Bell MD
--- NOTE | 2017-07-22 15:13 | PN ---
DATE: 07/22/2017 REASON FOR CONSULTATION AND FOLLOWUP: Sick sinus syndrome, status post multiple pauses with high-grade AV block, massive GI bleeding, status post permanent pacemaker. SUBJECTIVE: The patient denies any chest pain, shortness of breath or any palpitation. Complains of itching at the site of pacemaker. PHYSICAL EXAMINATION: VITAL SIGNS: As follows; temperature afebrile, heart rate 60, and blood pressure 140/60. HEENT: PERRLA. Intact. NECK: Supple. No carotid bruits or thyromegaly. CHEST: Clear to auscultation. HEART: S1 and S2, regular. ABDOMEN: Soft. EXTREMITIES: Clubbing and cyanosis negative. LABORATORY DATA: Blood workup as follows: WBC 8.5, hemoglobin 9.2, hematocrit 28.7, and platelet count 210. Chemistry shows sodium 140, potassium 4.3, chloride 107, carbon dioxide 26, anion gap of 11, BUN 13, and creatinine 0.9. IMPRESSION: High-grade atrioventricular block, status post massive gastrointestinal bleed, status post cauterization. H and H is stable , aortic stenosis, and mitral regurgitation. RECOMMENDATIONS: Aggressive medical treatment for now when the patient is stable and remain , monitor H and H, consider TAVR evaluation. Discussed with the patient. We will follow with you. In the interim, continue lisinopril. Supplement electrolyte as needed. We will follow with you. Thank you Dr. Bell for providing us the opportunity in taking care of the patient, Cary Vera. We will follow with you. Precious Yousif MD
--- NOTE | 2017-07-22 23:42 | PN ---
DATE: 07/22/2017 SUBJECTIVE: This patient is comfortable, tolerating the diet. PHYSICAL EXAMINATION VITAL SIGNS: Afebrile, blood pressure 140/60 and respirations 18. HEENT: Atraumatic and anicteric. NECK: Supple. HEART: S1, S2 heard. LUNGS: Bilateral air entry present. ABDOMEN: Soft. There is no tenderness. EXTREMITIES: No cyanosis. No clubbing. LABORATORY DATA: Hemoglobin 9.4,hematocrit 28.7, WBC 8.5 and platelet 210. Chemistry is essentially unremarkable. IMPRESSION: This 76-year-old patient with status post massive GI bleeding, has duodenal ulcer with vessel, status post bipolar coagulation probe and also clipping. Hemoglobin remain stable. On high dose PPI, would recommend continue the PPI. She is on Protonix 40 mg q. 12 hourly and after 10 days we will reduce it to once a day. The patient has status post bradyarrhythmias, status post pacemaker placement. The patient's potassium is low, being supplemented. Thank you very much for allowing us to participate in the care of the patient. Hansel Cardenas MD
--- NOTE | 2017-07-23 08:35 | PN ---
DATE: 07/22/2017 SUBJECTIVE: The patient was seen this Friday in room 568, bed 1. On bedside commode as I visited, awake, alert, clear, and in no acute distress. I spoke with the patient briefly that she is doing well with physical therapy, ready for transfer to transitional care unit which is pending. If this turns out to not be possible, then we may consider discharge to home as her daughter will be with her, and she may be traveling to [place] for the holidays. We will follow closely. Continue physical therapy. Flip Bell MD DALJIT
[2017-07-23] MEDS: Pantoprazole 40 mg EC Tab PO SCH ×2 (08:45→17:11)
[2017-07-23] MEDS: Insulin Reg-LOW-Coverage SC SCH ×3 (10:46→17:11)
[2017-07-23] MEDS ORDERED: Propofol 10 mg/ml Inj (20 ML) ONE (14:10)
--- NOTE | 2017-07-23 16:53 | CP.PCM.PN ---
<Anny Daly - Last Filed: 07/23/17 16:53> Subjective - Date & Time of Evaluation Date of Evaluation: 07/23/17 Time of Evaluation: 11:15 - Subjective Subjective: Seen and examined at the bedside earlier today , chart reviewed. Patient denies nausea, vomiting, or abdominal pain last BM was earlier this morning did not notice any melena or bright red blood. It was formed stool. Tolerating oral intake. No new complaints. Objective - Vital Signs/Intake and Output Vital Signs (last 24 hours): Temp Pulse Resp BP Pulse Ox 98.4 F 60 18 115/57 L 97 07/23/17 07:30 07/23/17 07:30 07/23/17 07:30 07/23/17 07:30 07/23/17 07:30 Intake and Output: 07/23/17 07/23/17 06:59 18:59 Intake Total 300 Balance 300 - Medications Medications: Current Medications Docusate Sodium (Colace) 100 mg PO DAILY [facility] Last Admin: 07/23/17 10:46 Dose: 100 mg Insulin Human Regular (Humulin R Low) 0 units SC ACHS [facility] PRN Reason: Protocol Last Admin: 07/23/17 12:11 Dose: 1 units Lisinopril (Zestril) 10 mg PO DAILY [facility] Last Admin: 07/17/17 09:08 Dose: 10 mg Ondansetron HCl (Zofran Inj) 4 mg IVP Q4H PRN PRN Reason: Nausea/Vomiting Last Admin: 07/16/17 17:12 Dose: 4 mg Pantoprazole Sodium (Protonix Ec Tab) 40 mg PO 0600,1600 [facility] Last Admin: 07/23/17 08:45 Dose: Not Given Sertraline HCl (Zoloft) 50 mg PO DAILY [facility] Last Admin: 07/23/17 10:46 Dose: 50 mg - Labs Labs: 07/22/17 05:55 07/22/17 05:55 PT 13.7 SECONDS (9.4-12.5) H 07/12/17 18:00 INR 1.25 (0.93-1.08) H 07/12/17 18:00 APTT 28.1 Seconds (25.1-36.5) 07/12/17 18:00 - Constitutional Appears: No Acute Distress - Head Exam Head Exam: NORMOCEPHALIC - Eye Exam Eye Exam: Normal appearance. absent: Scleral icterus - ENT Exam ENT Exam: Mucous Membranes Moist - Neck Exam Neck Exam: Normal Inspection - Respiratory Exam Respiratory Exam: NORMAL BREATHING PATTERN. absent: Respiratory Distress - Cardiovascular Exam Cardiovascular Exam: +S1, +S2 - GI/Abdominal Exam GI & Abdominal Exam: Soft, Normal Bowel Sounds. absent: Guarding, Tenderness, Rebound - Extremities Exam Extremities Exam: absent: Pedal Edema - Neurological Exam Neurological Exam: Alert, Awake, Oriented x3 - Skin Skin Exam: Dry, Warm Assessment and Plan - Assessment and Plan (Free Text) Assessment: Assessment: S/P GI bleed/melena/hematemsis, s/p egd , found duodenal ulcer w/ blood oozing and vissible vessel, s/p hemoclip x 3 Anemia secondary to GI bleed, status post total 4 units of packed RBC History of NSAID use H/O Arthritis S/P pacemaker for bradyarrhythmias DM, HTN PLAN: heart healthy diet continue Protonix twice a day Continue stool softeners monitor H/H, overt GI bleeding Seen and discussed w/ Dr. Muro. <Hansel Cardenas V - Last Filed: 07/24/17 00:49> Objective - Vital Signs/Intake and Output Vital Signs (last 24 hours): Temp Pulse Resp BP Pulse Ox 98.4 F 60 18 115/57 L 97 07/23/17 07:30 07/23/17 07:30 07/23/17 07:30 07/23/17 07:30 07/23/17 07:30 Intake and Output: 07/23/17 07/24/17 18:59 06:59 Intake Total 300 Balance 300 - Medications Medications: Current Medications Docusate Sodium (Colace) 100 mg PO DAILY [facility] Last Admin: 07/23/17 10:46 Dose: 100 mg Insulin Human Regular (Humulin R Low) 0 units SC ACHS [facility] PRN Reason: Protocol Last Admin: 07/23/17 17:11 Dose: Not Given Lisinopril (Zestril) 10 mg PO DAILY [facility] Last Admin: 07/17/17 09:08 Dose: 10 mg Ondansetron HCl (Zofran Inj) 4 mg IVP Q4H PRN PRN Reason: Nausea/Vomiting Last Admin: 07/16/17 17:12 Dose: 4 mg Pantoprazole Sodium (Protonix Ec Tab) 40 mg PO 0600,1600 [facility] Last Admin: 07/23/17 17:11 Dose: 40 mg Sertraline HCl (Zoloft) 50 mg PO DAILY [facility] Last Admin: 07/23/17 10:46 Dose: 50 mg - Labs Labs: 07/22/17 05:55 07/22/17 05:55 PT 13.7 SECONDS (9.4-12.5) H 07/12/17 18:00 INR 1.25 (0.93-1.08) H 07/12/17 18:00 APTT 28.1 Seconds (25.1-36.5) 07/12/17 18:00 Attending/Attestation - Attestation I have personally seen and examined this patient.: Yes I have fully participated in the care of the patient.: Yes I have reviewed all pertinent clinical information, including history, physical exam and plan: Yes Notes (Text): This is an addendum to GI progress report dictated by Anny Daly APN.The patient was seen and examined earlier. Medical records, lab studies, imagings were reviewed. Last 24 hours events reviewed. Agreed with the above treatment plan as outlined in Anny Daly APN's notes the with the addition of the following Tolerating the diet Ambulating Hemoglobin stable On high-dose PPI We introduced the PPI to once daily for 2 weeks. Avoid NSAIDs Would need repeat endoscopy in 6-8w 07/24/17 00:48
--- NOTE | 2017-07-23 23:56 | PN ---
DATE: 07/23/2017 LOCATION: The patient is in room 568, bed 1. REASON FOR CONSULTATION: Followup of high-grade AV block, massive GI bleeding, status post endoscopy, status post permanent pacemaker insertion. SUBJECTIVE: The patient is lying flat in bed without chest pain, shortness of breath, palpitation. PHYSICAL EXAMINATION VITAL SIGNS: Blood pressure 115/57, respirations 18, pulse of 60, temperature 98.4. HEENT: Head is normocephalic. Eyes; pupils normal, conjunctivae slightly pale. NECK: JVP low. Carotids equal. THORAX: AP diameter normal. LUNGS: Clear. CARDIOVASCULAR: S1, S2. ABDOMEN: Soft, nontender, no organomegaly. Bowel sounds normal. EXTREMITIES: No clubbing. No cyanosis. LABORATORY DATA: WBC 8.5, hemoglobin 9.4, hematocrit 28.7, platelet 210. Random sugar 130. Sodium 140, potassium 4.3, BUN 13, creatinine 0.9. Calcium, phosphorous, magnesium, AST, ALT normal. DIAGNOSES: High-grade atrioventricular block, status post massive gastrointestinal bleeding, status post cauterization of bleeding spot, status post endoscopy, status post permanent pacemaker insertion, severe aortic stenosis, preserved left ventricular ejection fraction of 55%, [id number]-ty-husrolcr mitral regurgitation, moderate mitral stenosis, hszj-sz-evigjlyq tricuspid regurgitation, right ventricular systolic pressure of 59 mmHg, diabetes, hypertension, hyperlipidemia. PLAN: Continue present therapy, and when the patient is stable, she can be discharged home and we will evaluate later on for her aortic stenosis evaluation for TAVR. In the meantime, the patient will continue lisinopril 10 mg daily, Zoloft 50 mg p.o. daily. We will follow with you closely. Precious Frost MD
[2017-07-24] MEDS: Pantoprazole 40 mg EC Tab PO SCH ×2 (06:24→15:00)
[2017-07-24] MEDS: Insulin Reg-LOW-Coverage SC SCH ×3 (08:30→15:30)
[2017-07-24 09:00] VITALS: BP 110/50; RESP 20; TEMP 98.5; O2SAT 98
[2017-07-24 11:32] LABS: BASO # 0.03 K/mm3 (0.0-2.0); BASO % 0.5 % (0.0-3.0); EOS # 0.1 (0.0-0.7); EOS % 1.8 % (1.5-5.0); GRAN # 4.22 (1.4-6.5); GRAN % 70.9 % (50.0-68.0); HEMATOCRIT 29.4 % (36.0-48.0); LYMPH # 1.2 (1.2-3.4); LYMPH % 20.2 % (22.0-35.0); MEAN CORPUSCULAR HEMOGLOBIN 30.1 pg (25.0-35.0); MEAN CORPUSCULAR HGB CONC 32.3 g/dl (31.0-37.0); MEAN PLATELET VOLUME 9.5 fl (7.0-11.0); MONO # 0.4 (0.1-0.6); MONO % 6.6 % (1.0-6.0); RED CELL DISTRIBUTION WIDTH 15.6 % (11.5-14.5)
--- NOTE | 2017-07-24 16:20 | CP.PCM.PN ---
<Anny Daly - Last Filed: 07/24/17 16:18> Subjective - Date & Time of Evaluation Date of Evaluation: 07/24/17 Time of Evaluation: 10:15 - Subjective Subjective: S&e at bedside, earlier today, daughter at bedside, no complaints of overt GIB, no N/V or abdominal pain. having BM,no diarrhea. No new complaints, no overnight events reported. Objective - Vital Signs/Intake and Output Vital Signs (last 24 hours): Temp Pulse Resp BP Pulse Ox 98.5 F 60 20 110/50 L 98 07/24/17 07:30 07/24/17 07:30 07/24/17 07:30 07/24/17 07:30 07/24/17 07:30 Intake and Output: 07/24/17 07/24/17 06:59 18:59 Intake Total 420 Output Total 550 Balance -130 - Medications Medications: Current Medications Docusate Sodium (Colace) 100 mg PO DAILY [facility] Last Admin: 07/24/17 11:00 Dose: 100 mg Insulin Human Regular (Humulin R Low) 0 units SC ACHS [facility] PRN Reason: Protocol Last Admin: 07/24/17 11:47 Dose: Not Given Lisinopril (Zestril) 10 mg PO DAILY [facility] Last Admin: 07/17/17 09:08 Dose: 10 mg Ondansetron HCl (Zofran Inj) 4 mg IVP Q4H PRN PRN Reason: Nausea/Vomiting Last Admin: 07/16/17 17:12 Dose: 4 mg Pantoprazole Sodium (Protonix Ec Tab) 40 mg PO 0600,1600 [facility] Last Admin: 07/24/17 06:24 Dose: 40 mg Sertraline HCl (Zoloft) 50 mg PO DAILY [facility] Last Admin: 07/24/17 11:00 Dose: 50 mg - Labs Labs: 07/24/17 11:26 07/22/17 05:55 PT 13.7 SECONDS (9.4-12.5) H 07/12/17 18:00 INR 1.25 (0.93-1.08) H 07/12/17 18:00 APTT 28.1 Seconds (25.1-36.5) 07/12/17 18:00 - Constitutional Appears: No Acute Distress - Eye Exam Eye Exam: Normal appearance - ENT Exam ENT Exam: Mucous Membranes Moist - Respiratory Exam Respiratory Exam: NORMAL BREATHING PATTERN. absent: Respiratory Distress - Cardiovascular Exam Cardiovascular Exam: +S1, +S2 - GI/Abdominal Exam GI & Abdominal Exam: Soft, Normal Bowel Sounds. absent: Guarding, Tenderness, Rebound - Neurological Exam Neurological Exam: Alert, Awake, Oriented x3 - Skin Skin Exam: Dry, Warm Assessment and Plan - Assessment and Plan (Free Text) Assessment: Assessment: S/P GI bleed/melena/hematemsis, s/p egd , found duodenal ulcer w/ blood oozing and vissible vessel, s/p hemoclip x 3 Anemia secondary to GI bleed, status post total 4 units of packed RBC History of NSAID use H/O Arthritis S/P pacemaker for bradyarrhythmias DM, HTN PLAN: heart healthy diet continue Protonix twice a day and after 10 day from now decrease Protonix to daily. Continue stool softeners monitor H/H, overt GI bleeding discuss w/ pt and daughter FU outpt office, need repeat EGD and colon. Seen and discussed w/ Dr. Muro. <Hansel Cardenas V - Last Filed: 07/24/17 22:18> Objective - Vital Signs/Intake and Output Vital Signs (last 24 hours): Temp Pulse Resp BP Pulse Ox 98.5 F 60 20 110/50 L 98 07/24/17 07:30 07/24/17 07:30 07/24/17 07:30 07/24/17 07:30 07/24/17 07:30 - Labs Labs: 07/24/17 11:26 07/22/17 05:55 PT 13.7 SECONDS (9.4-12.5) H 07/12/17 18:00 INR 1.25 (0.93-1.08) H 07/12/17 18:00 APTT 28.1 Seconds (25.1-36.5) 07/12/17 18:00 Attending/Attestation - Attestation I have personally seen and examined this patient.: Yes I have fully participated in the care of the patient.: Yes I have reviewed all pertinent clinical information, including history, physical exam and plan: Yes Notes (Text): This is an addendum to GI progress report dictated by Anny Daly APN.The patient was seen and examined earlier. Medical records, lab studies, imagings were reviewed. Last 24 hours events reviewed. Agreed with the above treatment plan as outlined in Anny Daly APN's notes the with the addition of the following Tolerating the diet will be been stable on examination abdomen soft no tenderness Continue Protonix twice a day for another 10 days then once a day Avoid NSAIDs Follow-up in office Repeat EGD and colonoscopy as an outpatient 07/24/17 22:17
--- NOTE | 2017-07-24 19:52 | PN ---
DATE: 07/21/2017 SUBJECTIVE: This patient was doing well, had 2 bowel movements. No bleeding per rectum. Tolerating the diet. PHYSICAL EXAMINATION: VITAL SIGNS: Temperature 98.7, pulse 69, blood pressure is 147/77. HEENT: Atraumatic, anicteric. NECK: Supple. HEART: S1, S2 heard. LUNGS: Bilateral air entry present. ABDOMEN: Soft. There is no tenderness. EXTREMITIES: No cyanosis or clubbing. LABORATORY DATA: Hemoglobin 9.4, hematocrit 28.4, WBC 8.3, platelets 201. BUN 12, creatinine 0.9, potassium 3.2. IMPRESSION: 1. This is a 76-year-old patient admitted with massive upper gastrointestinal bleeding, found to have duodenal ulcer with visible vessel with some oozing of the blood, status post clipping and cauterization. The patient hemodynamically remained stable. The patient was on Protonix drip which was discontinued, she is on twice a day Protonix now. 2. The patient had bradyarrhythmia, heart block, status post pacemaker placement. 3. Constipation, improved. RECOMMENDATIONS: 1. Continue the high dose proton pump-inhibitor. 2. Follow up of the hemoglobin and hematocrit. 3. Soft diet, chew well, the patient does have clips. 4. We will discontinue the Colace. 5. She would benefit from the elective esophagogastroduodenoscopy to evaluate the ulcer healing. Treat for H. pylori positive. Thank you very much for allowing us to participate in the care of the patient. Hansel Cardenas MD
--- NOTE | 2017-07-24 20:21 | PN ---
DATE: 07/24/2017 LOCATION: Patient is in room 568, bed 1. REASON FOR CONSULTATION: High-grade AV block, status post pacemaker insertion, GI bleeding post endoscopy. SUBJECTIVE: Patient is lying comfortably in bed without chest pain, shortness of breath, palpitations. PHYSICAL EXAMINATION VITAL SIGNS: Blood pressure 110/50, respirations 20, pulse 60, temperature 98.5. HEENT: Head is normocephalic. Eyes; pupils normal, conjunctivae slightly pale. NECK: JVP low. Carotids equal. THORAX: AP diameter normal. LUNGS: No rales. CARDIOVASCULAR: S1 and S2. ABDOMEN: Soft. No tenderness. No organomegaly. Bowel sounds normal. EXTREMITIES: No clubbing, no cyanosis. LABORATORY DATA: WBC 6.0, hemoglobin 9.5,hematocrit 29.5, platelets 242. Random sugar is 199. Other labs were done previously and they were reported in no previous notes. DIAGNOSES: High grade atrioventricular block, status post massive gastrointestinal bleeding, status post cauterization of bleeding, status post endoscopy, status post permanent pacemaker insertion, severe aortic stenosis, preserved LV function with ejection fraction of 55%, [id number] mitral regurgitation, moderate mitral stenosis, rvta-[id number]-[id number] tricuspid regurgitation, right ventricular systolic pressure of 59 mmHG, diabetes, hypertension, hyperlipidemia. PLAN: Clinically from cardiac point of view, patient is stable. We will continue present therapy. Then, patient is medically stable and we will follow aortic stenosis as outpatient for TAVR evaluation and in the mean time, we will continue present therapy and will follow. Precious Frost MD
--- NOTE | 2017-07-24 22:20 | CP.PCM.PN ---
Subjective - Date & Time of Evaluation Date of Evaluation: 07/19/17 Time of Evaluation: 10:45 - Subjective Subjective: no bleeding per rectum no vomiting no complaints of abdominal pain Objective - Vital Signs/Intake and Output Vital Signs (last 24 hours): Temp Pulse Resp BP Pulse Ox 98.1 F 60 19 141/55 L 93 L 07/20/17 00:01 07/20/17 00:01 07/20/17 00:01 07/20/17 00:01 07/20/17 00:01 - Medications Medications: Current Medications Cephalexin Monohydrate (Keflex) 250 mg PO TID [facility] PRN Reason: Protocol Stop: 07/21/17 23:59 Last Admin: 07/19/17 19:19 Dose: 250 mg Pantoprazole Sodium (Protonix 40mg Ivpb) 40 mg in 100 mls @ 8 mls/hr IVPB .[id number] [facility] Last Admin: 07/19/17 23:31 Dose: 8 mls/hr Sodium Chloride (Sodium Chloride 0.9%) 1,000 mls @ 100 mls/hr IV .Q10H [facility] Last Admin: 07/19/17 22:18 Dose: 100 mls/hr Insulin Human Regular (Humulin R Low) 0 units SC ACHS [facility] PRN Reason: Protocol Last Admin: 07/19/17 22:19 Dose: Not Given Lisinopril (Zestril) 10 mg PO DAILY [facility] Last Admin: 07/17/17 09:08 Dose: 10 mg Ondansetron HCl (Zofran Inj) 4 mg IVP Q4H PRN PRN Reason: Nausea/Vomiting Last Admin: 07/16/17 17:12 Dose: 4 mg Sertraline HCl (Zoloft) 50 mg PO DAILY [facility] Last Admin: 07/19/17 09:34 Dose: 50 mg - Labs Labs: 07/19/17 07:00 07/19/17 07:00 PT 13.7 SECONDS (9.4-12.5) H 07/12/17 18:00 INR 1.25 (0.93-1.08) H 07/12/17 18:00 APTT 28.1 Seconds (25.1-36.5) 07/12/17 18:00 - Constitutional Appears: No Acute Distress - Head Exam Head Exam: ATRAUMATIC, NORMOCEPHALIC - Eye Exam Eye Exam: EOMI. absent: Scleral icterus - ENT Exam ENT Exam: Mucous Membranes Moist - Neck Exam Neck Exam: Full ROM. absent: Lymphadenopathy - Respiratory Exam Respiratory Exam: Clear to Ausculation Bilateral, NORMAL BREATHING PATTERN. absent: Rales, Rhonchi - Cardiovascular Exam Cardiovascular Exam: +S1, +S2. absent: JVD - GI/Abdominal Exam GI & Abdominal Exam: Soft. absent: Tenderness, Organomegaly - Extremities Exam Extremities Exam: absent: Calf Tenderness, Full ROM - Neurological Exam Neurological Exam: Alert, Oriented x3 Assessment and Plan - Assessment and Plan (Free Text) Assessment: GI bleed/melena/hematemsis, s/p egd , found duodenal ulcer w/ blood oozing and vissible vessel, s/p hemoclip x 3 Anemia secondary to GI bleed, status post total 4 units of packed RBC History of NSAID use H/O Arthritis Bradyarrhytmiastatus post a permanent pacemaker DM, HTN Plan: Continue high-dose PPI Close follow-up of the hemoglobin and hematocrit Slowly and once the diet Cardiology follow-up Discussed with the patient's daughter and also with the Dr. Bell
== END 2017-07-24 21:17 | DRG 378 ==
LOC: ED 17:18 → ERH 19:14 → 2RSO 20:40 → ICU 07-16 10:27 → 2RSO 07-18 11:15 → 5RNO 07-22 10:37
PROVIDERS: ADMIT Internal Medicine; ATTEND Internal Medicine
PROC: 30233N1 Transfusion of Nonautologous Red Blood Cells into Peripheral Vein, Percutaneous Approach (ICD-10-PCS; 2017-07-13)
PROC: 0W3P8ZZ Control Bleeding in Gastrointestinal Tract, Via Natural or Artificial Opening Endoscopic (ICD-10-PCS; principal; 2017-07-16 15:30)
PROC: 02HK3JZ Insertion of Pacemaker Lead into Right Ventricle, Percutaneous Approach (ICD-10-PCS; 2017-07-17)
PROC: 0JH605Z Insertion of Pacemaker, Single Chamber Rate Responsive into Chest Subcutaneous Tissue and Fascia, Open Approach (ICD-10-PCS; 2017-07-17)
DX: K26.4 Chronic or unspecified duodenal ulcer with hemorrhage (principal); D62 Acute posthemorrhagic anemia; I44.2 Atrioventricular block, complete; I49.5 Sick sinus syndrome; I27.20 Pulmonary hypertension, unspecified; I08.3 Combined rheumatic disorders of mitral, aortic and tricuspid valves; E83.42 Hypomagnesemia; E11.9 Type 2 diabetes mellitus without complications; I10 Essential (primary) hypertension; K29.70 Gastritis, unspecified, without bleeding; E78.5 Hyperlipidemia, unspecified; F32.9 Major depressive disorder, single episode, unspecified; E87.6 Hypokalemia; K59.00 Constipation, unspecified; M19.90 Unspecified osteoarthritis, unspecified site; E66.9 Obesity, unspecified; Z68.31 Body mass index [BMI] 31.0-31.9, adult; Z79.82 Long term (current) use of aspirin